=== PATIENT | female | born 1955 | race Caucasian/White ===

== ENCOUNTER 2017-05-24 21:15 | Emergency (ER) | payer BC, SELFPAY ==
[2017-05-24 21:17] VITALS: BP 159/102; PULSE 78; RESP 16; TEMP 36.9; O2SAT 96; BMI 20.9
--- NOTE | 2017-05-24 21:30 | EKG12_ITS ---
Test Reason : CHEST TIGHTNESS Blood Pressure : / mmHG Vent. Rate : 066 BPM Atrial Rate : 066 BPM P-R Int : 148 ms QRS Dur : 076 ms QT Int : 384 ms P-R-T Axes : 054 069 056 degrees QTc Int : 402 ms Normal sinus rhythm Nonspecific ST abnormality Abnormal ECG Confirmed by JAMES BUCHANAN ([id number]), fashion editor KALI KAHN ([id number]) on 05/28/2017 10:12:25 AM Referred By: Confirmed By:JAMES BUCHANAN
[2017-05-24 22:57] LABS: Bacteria 0 SEEN /hpf (None Seen); Mucous, Urine 0 SEEN /hpf (<or=2+); Red Blood Cells-Urine 0 SEEN /hpf (0-5); Squamous Epithelial Cells - UA 0 SEEN /hpf (5-10); White Blood Cells 0 SEEN /hpf (0-5)
--- NOTE | 2017-05-24 23:01 | ED.DCSUM_ITS ---
- ER Visit Summary Date of Service: 05/24/17 Chief Complaint: I think I had an anxiety reaction and bilateral abdominal pain radiating to the suprapubic region History of Present Illness: The patient is a 61 F who has been under significant stress since had surgery and has not done well. She does have history of anxiety and takes Xanax 1 mg 3 times daily. She did not take her evening dose. She denies fever, chills night sweats. Denies double vision , blurred vision loss of vision. She denies any cardiac or respiratory symptoms. She denies history of renal or ureteral calculi. She does complain of feeling bloated and slightly distended. She is status post hysterectomy for abnormal vaginal bleeding. She denies any skin lesions. She denies any trauma. She denies any neurologic symptoms. Please read written note for complete detail Physical Examination: Patient appears slightly anxious. Vital signs are remarkable blood pressure 159 102. Head is atraumatic normocephalic. Pupils are equal round reactive. Extraocular muscles are intact. TMs are pearly white with landmarks noted. Nares patent with no drainage. Posterior pharynx without erythema or exudate. Uvula is midline. There is no dysphonia or dysphasia. Trachea is midline. There is no stridor with auscultation of the neck. Patient has a scar inferior anterior neck secondary to thyroidectomy. Insert cardiopulmonary exam abdomen slightly distended tympanitic with increased bowel sounds. There is no guarding rebound tenderness. There is no CVA tenderness noted. There is no evidence of umbilical or inguinal hernia. Neuro exam is nonfocal. She does appear anxious. Friend who is with her states she is very anxious and concerned because her is not doing well after his knee surgery. Test Results: Urine is unremarkable Emergency Department Course and Treatment: Because she complains of flank pain will assess UA. Ativan 1 mg was initially ordered. Patient declined and requested Xanax. Treatment Plan: Take Xanax as prescribed and follow-up with PCP as needed Disposition: Discharged to home Impression: Acute anxiety reaction This note was generated with [employer] dictation software. It may contain incorrect words, spelling, and punctuation that were not noted in review of the chart prior to signing ED Disposition - Plan for ED Patient: Disposition: Home or Assisted Living Chief Complaint: General Illness Instructions: ED Stress React Referrals: Artis Mays Jr., MD [Primary Care Provider] - Keep Jose appointment
[2017-05-24 23:08] LABS: Color, Urine Yellow (Yellow); Glucose, Dipstick Normal (Normal); Ketone-Dipstick Negative (Negative); Leukocyte Esterase-Dipstick 25 /ul (Negative); Nitrite-Dipstick Negative (Negative); Occult Blood-Urine Negative /ul (Negative); Protein-Dipstick Negative (Negative); Specific Gravity, Urine 1.005 (1.002-1.030); Urine Bilirubin Dipstick Negative (Negative); Urine Clarity Clear (Clear); Urine Urobilinogen Normal (Normal)
[2017-05-24] MEDS: ALPRAZolam 0.5 MG Tablet 1 MG PO (23:34)
[2017-05-25 00:08] VITALS: BP 152/75; PULSE 67; RESP 15; O2SAT 98
== END 2017-05-25 00:13 | disposition home or self-care (01) ==
PROVIDERS: Emergency Provider Emergency Medicine; Family Provider Internal Medicine; PCP Internal Medicine
DX: F41.1 Generalized anxiety disorder (principal); R14.0 Abdominal distension (gaseous); E03.9 Hypothyroidism, unspecified; Z90.710 Acquired absence of both cervix and uterus; Z90.89 Acquired absence of other organs; Z79.899 Other long term (current) drug therapy
CPT/HCPCS: 81001; 93005; 99281; A4216

== ENCOUNTER 2018-02-22 13:32 | Emergency (ER) | payer BC, SELFPAY ==
[2018-02-22 13:32] VITALS: BP 163/81; PULSE 87; RESP 16; TEMP 36.6; O2SAT 97; BMI 21.6
--- NOTE | 2018-02-22 14:50 | ED.VISSUMM ---
- ER Visit Summary Date of Service: 02/22/18 Chief Complaint: Anxiety History of Present Illness: The patient is a 62 F who states that she ran out of her Xanax on Saturday morning around 0400 hours. She states that she has been under increased amount of stress due to her 's medical status and having to put down a stray cat. Because of this increased stress that she has taken more Xanax than what she is prescribed. She is on Xanax 0.5 mg 4 times daily. She has been taking Xanax for years. She states that her pharmacist told her they can fill the prescription tomorrow. She last filled a 30-day supply on 01/27/18 for [address] Mays for this condition. She states that she feels like she is having a panic attack. She feels nauseated. She had one episode of diarrhea today. She notes chills. No rhinorrhea. No goosebumps flush. She spoke with her counselor who gave her coping skills. Physical Examination: Afebrile vital signs are stable Gen: Well-nourished well-developed Head: Normocephalic atraumatic Eyes: Perrl EOMI ENT: TMs clear no rhinorrhea moist mucous membranes Neck: Supple no lymphadenopathy no JVD nontender CVS: Regular rate rhythm no murmurs normal S1-S2 Respiratory: No distress clear to auscultation bilaterally chest nontender Abdomen: Soft nontender nondistended normal bowel sounds no masses Back: Nontender Extremity: Nontender no edema Skin: Normal color no rash Neuro: alert orientated ?3 CN II-XII intact normal strength sensation reflexes gait cerebellar Psych: Anxious Emergency Department Course and Treatment: An oars report was performed. I informed the patient I will be happy to give her one Xanax while she is here unfortunately I cannot refill her Xanax. I will write for some Vistaril. Impression: 1. Anxiety This note was generated with [employer] dictation software. It may contain incorrect words, spelling, and punctuation that were not noted in review of the chart prior to signing ED Disposition - Plan for ED Patient: Disposition: Home or Assisted Living Chief Complaint: Anxiety Instructions: ED Panic Attack Prescriptions: hydrOXYzine pamoate capsule [Vistaril] 25 mg PO TID PRN PRN #10 cap PRN Reason: Anxiety Referrals: Artis Mays Jr., MD [Primary Care Provider] - As soon as possible
[2018-02-22] MEDS: ALPRAZolam 0.5 MG Tablet 1 MG PO (15:17)
[2018-02-22 15:20] VITALS: BP 153/91; PULSE 74; RESP 18; O2SAT 96
--- NOTE | 2018-02-22 15:49 | ED.RN ---
support provided, listened to patient. she appears more calm after the xanax. [place] information given on vistaril to .
== END 2018-02-22 15:49 | disposition home or self-care (01) ==
LOC: ED 15:02
PROVIDERS: Emergency Provider Emergency Medicine; Family Provider Internal Medicine; PCP Internal Medicine
DX: F41.9 Anxiety disorder, unspecified (principal); R19.7 Diarrhea, unspecified; Z72.0 Tobacco use
CPT/HCPCS: 99284

== ENCOUNTER 2018-05-19 14:40 | Emergency (ER) | payer BC, SELFPAY ==
[2018-05-19 14:40] VITALS: BP 161/101; PULSE 94; RESP 18; TEMP 36.3; O2SAT 95; BMI 22.6
--- NOTE | 2018-05-19 14:54 | ED.VISSUMM ---
- ER Visit Summary Date of Service: 05/19/18 Chief Complaint: Panic attack/anxiety History of Present Illness: The patient is a 62 F who presents with anxiety and a panic attack. She feels shaky and her heart is racing. This is been ongoing for the past 2 days. Patient takes Xanax 4 times a day. She states that she ran out on Saturday, May 17. Dr. Mays prescribes this for her. 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 Physical Examination: Vital signs reviewed. HEENT exam unremarkable. Heart is regular rate and rhythm without murmurs. Lungs are clear to auscultation. Abdomen is soft and nontender. Extremities reveal no edema. Skin exam normal. Neurologic exam normal. Patient does appear slightly anxious. Test Results: None performed Emergency Department Course and Treatment: I did an [facility] report and it shows the patient filled 120 pills on April 21. If she ran out on May 17 then it appears that she has taken more than 4 times a day a couple of occasions and that is why she ran out early. I will give her 1 dose here. I will not prescribe her anymore and she will need to follow-up with Dr. Mays for any future Xanax prescriptions Treatment Plan: [] Disposition: Discharge Impression: Anxiety This note was generated with [employer] dictation software. It may contain incorrect words, spelling, and punctuation that were not noted in review of the chart prior to signing ED Disposition - Plan for ED Patient: Chief Complaint: Anxiety Referrals: Artis Mays Jr., MD [Primary Care Provider] -
--- NOTE | 2018-05-19 14:56 | ED.DEP ---
ED Disposition - Plan for ED Patient: Disposition: Home or Assisted Living Chief Complaint: Anxiety Instructions: ED Panic Attack Referrals: Artis Mays Jr., MD [Primary Care Provider] -
[2018-05-19] MEDS: ALPRAZolam 0.5 MG Tablet PO (15:35)
--- NOTE | 2018-05-19 16:15 | ED.RN ---
PT SPEAKING WITH SOCIAL WORK AT THIS TIME.
[2018-05-19 16:26] VITALS: BP 148/81; PULSE 71; RESP 15; O2SAT 98
--- NOTE | 2018-05-19 16:26 | CM.ED ---
Social Work Note Reason for Consult: Anxiety Informant: Self-Referral Information obtained from: Medical record, pt and pt's spouse, Pranav. Introduced self and role at [facility]. Pt is laying in bed in no apparent distress. Pt presents with pleasant affect as evidenced by smiling and willingness to participate. Maintains eye contact and speech is appropriate. Pt is not visibly anxious at this time, but has received a dose of Xanax. Living Arrangements: Pt reports to live with spouse in a three story home. Denies access issues and claims to be independent with care. They also have 8 cats in the home that have been strays and they cannot find shelters or homes for. Employment: Pt is retired. Both pt and spouse report to be financially stable. Supports: Pt identifies spouse as primary support. Stressors: Spouse was hospitalized this pas year and has health comorbidities, multiple cats in the home, the holidays. Pt identifies these all as stressors in addition to her PCP allegedly telling her she would if she did not take her Xanax and to not see a psychiatrist because they would lock me up. Mental Health Hx: Pt reports a hx of anxiety and denies other mental health diagnoses. She was seeing a counselor in [place] by the last name of Dameron, but states that she could only get her in every 6 weeks and it was not helpful. Pt is receptive to other counseling resources as options of treatment. Educate pt and spouse to the purpose of a psychiatrist and explain that they specialize in mental health diagnoses and the medications that treat them. Pt and spouse are both receptive to linkage with a psychiatrist. Provide with a list of local counselors and psychiatrists. Substance Abuse Hx: Pt does report to smoke between 1/2-1ppd. Denies use of other diagnoses. Intervention(s): Education on purpose of psychiatrist and counselor. Resources provided. Emotional support provided. PLAN: Home with support of spouse. Gloria Meraz, [employer], [employer]
--- OUTSIDE RECORDS SUMMARY | 2018-07-22 03:38 | XMS RPT_ITS ---
:1955 Author Organization OHIP Support Name Relationship Address Phone PRANAV CHANDRA Unavailable [address] + [place] [address] R Unavailable Unavailable Unavailable BADERTCHER PRANAV Unavailable [address] + [place] [address] BADERTCHER, PRANAV Unavailable [address] + [place] [address] BADERTCHER, PRANAV Unavailable [address] + [place] [address] BADERTCHER, PRANAV Unavailable [address] + [place] [address] BADERTSCHER, PRANAV Unavailable [address] + [place] [address] R Unavailable Unavailable Unavailable BADERTCHER, PRANAV Unavailable [address] + [place] [address] BADERTCHER, PRANAV Unavailable [address] + [place] [address] BADERTCHER, PRANAV Unavailable [address] + [place] [address] BADERTCHER, PRANAV Unavailable [address] + [place] [address] BADERTCHER, PRANAV Unavailable [address] + [place] [address] BADERTCHER, PRANAV Unavailable [address] + [place] [address] BADERTSCHER, PRANAV Unavailable [address] + [place] [address] R Unavailable Unavailable Unavailable BADERTSCHER, PRANAV Unavailable [address] + [place] [address] R Unavailable Unavailable Unavailable Care Team Providers Name Role Phone ARTIS SALES MD, JR. Primary Care Unavailable VERONICA BRUNO Attending Unavailable ARTIS SALES MD, JR. Primary Care Unavailable ARTIS SALES MD, JR. Consulting Unavailable ISAIAS ARIZA MD Attending Unavailable ARTIS SALES MD, JR. Attending Unavailable ARTIS SALES MD, JR. Primary Care Unavailable ARTIS SALES MD, JR. Attending Unavailable ARTIS SALES MD, JR. Primary Care Unavailable ARTIS SALES MD, JR. Attending Unavailable ARTIS SALES MD, JR. Primary Care Unavailable Davon Wang, Artis Primary Care Unavailable Dung Sibley Attending Unavailable Davon Wang, Artis Primary Care Unavailable Fady Benítez Attending Unavailable Artis Sales Jr. Primary Care Unavailable Montana Bonilla Attending Unavailable Dottie Stokes NP-C Attending Unavailable Davon Wang, Artis Referring Unavailable PROBLEMS PROBLEMS No Problem Records FoundPROCEDURES PROCEDURES No Procedure Records FoundRESULTS RESULTS EMERGENCY DEPARTMENT Observed: 05/19/2018 Status: F Source: [place] SUMMARY 2:56 PM [facility] REPOSITORY [facility] Medical Records Department [address] [place] [address] Emergency Department Summary 05/19/18 1454 MR#: [id number] Acct: [id number] Name: DOLORES CHANDRA Rep #: [id number] : 1955 62 From: Dung Sibley MD PCP: Artis Sales Jr., MD Status: PRE ER - ER Visit Summary Date of Service: 05/19/18 Chief Complaint: Panic attack/anxiety History of Present Illness: The patient is a 62 F who presents with anxiety and a panic attack. She feels shaky and her heart is racing. This is been ongoing for the past 2 days. Patient takes Xanax 4 times a day. She states that she ran out on May 17. Dr. Sales prescribes this for her. She states that she has a prescription to medicinal plant pick[facility] but she cannot pick it up until tomorrow or Saturday. Physical Examination: Vital signs reviewed. HEENT exam unremarkable. Heart is regular rate and rhythm without murmurs. Lungs are clear to auscultation. Abdomen is soft and nontender. Extremities reveal no edema. Skin exam normal. Neurologic exam normal. Patient does appear slightly anxious. Test Results: None performed Emergency Department Course and Treatment: I did an OARRS report and it shows the patient filled 120 pills on April 21. If she ran out on May 17 then it appears that she has taken more than 4 times a day a couple of occasions and that is why she ran out early. I will give her 1 dose here. I will not prescribe her anymore and she will need to follow-up with Dr. Sales for any future Xanax prescriptions Treatment Plan: [] Disposition: Discharge Impression: Anxiety This note was generated with TVbeat dictation software. It may contain incorrect words, spelling, and punctuation that were not noted in review of the chart prior to signing ED Disposition - Plan for ED Patient: Chief Complaint: Anxiety Referrals: Artis Sales Jr., MD [Primary Care Provider] - What to do if you have Problems For any increased pain, shortness of breath, bleeding, nausea or vomiting, chest pain, or any unexpected problems, contact your Primary Care Provider. Call [facility] ([phone]) or report to the closest Emergency Room. Call 911 if necessary. 05/19/18 1456 <Electronically signed by Dung Sibley MD> Date Dung Sibley MD Cosigner Signature (If Indicated): Date CC: Artis Sales Jr., MD DISCHARGE INSTRUCTION Observed: 05/19/2018 Status: F Source: [place] 2:56 PM [facility] REPOSITORY [facility] Medical Records Department [address] [place] [address] Discharge Instruction 05/19/18 1456 MR#: [id number] Acct: [id number] Name: DOLORES CHANDRA Rep #: [id number] : 1955 62 From: Dung Sibley MD PCP: Artis Sales Jr., MD Status: PRE ER ED Disposition - Plan for ED Patient: Disposition: Home or Assisted Living Chief Complaint: Anxiety Instructions: ED Panic Attack Referrals: Artis Sales Jr., MD [Primary Care Provider] - What to do if you have Problems For any increased pain, shortness of breath, bleeding, nausea or vomiting, chest pain, or any unexpected problems, contact your Primary Care Provider. Call [facility] ([phone]) or report to the closest Emergency Room. Call 911 if necessary. 05/19/18 1456 <Electronically signed by Dung Sibley MD> Date Dung Sibley MD Cosigner Signature (If Indicated): Date CC: Artis Sales Jr., MD VL CAROTID BILATERAL Observed: 05/15/2018 Status: F Source: [facility] DUPLEX 2:10 PM [facility] REPOSITORY ORIGINAL Bilateral carotid artery ultrasound, grayscale study with duplex Doppler exam including color Doppler interrogation and waveform analysis HISTORY: Dizziness COMPARISON: None Note: Stenosis measurements are made with SRU consensus criteria where applicable. Mild intimal thickening is evident within the common carotid arteries bilaterally. There is minimal plaque is evident at the origins of the ICAs bilaterally, with no significant visual stenosis identifi ed. There is no significant velocity acceleration or turbulent flow present. Maximum ICA peak systolic velocity on the RIGHT is 89 cm/s and on the LEFT 91 cm/s. The size or within normal limits. The melva tebral arteries are patent bilaterally with antegrade flow. IMPRESSION: No hemodynamically significant stenosis is evident on this exam. Interpreted By: Sebastian Masterson MD Preliminary Report By: Sebastian Masterson MD Electronically Signed By: Sebastian Masterson MD Dictated Date: 05/16/2018 8:01:46 AM Prelim Date: 05/16/2018 8:01:46 AM Sign Date: 05/16/2018 8:04:06 AM XR SACROILIAC JOINTS Observed: 05/12/2018 Status: F Source: [facility] MINIMUM 3 VIEWS 3:13 PM [facility] REPOSITORY ORIGINAL XR SACROILIAC JOINTS MINIMUM 3 VIEWS CLINICAL STATEMENT: back pain, lumbosacral COMPARISON: None FINDINGS: SI joints are symmetric and normal. There is no ankylosis, degenerative change or other asymmetric finding. Sacrum appears intact. IMPRESSION: Negative SI joint radiographs. Interpreted By: Thomas Camarena MD Preliminary Report By: Thomas Camarena MD Electronically Signed By: Thomas Camarena MD Dictated Date: 05/12/2018 4:22:11 PM Prelim Date: 05/12/2018 4:22:11 PM Sign Date: 05/12/2018 4:22:44 PM XR SPINE LUMBAR Observed: 05/12/2018 Status: F Source: [facility] AP/LAT 3:12 PM [facility] REPOSITORY ORIGINAL XR SPINE LUMBAR AP/LAT CLINICAL STATEMENT: back pain, lumbosacral COMPARISON: None FINDINGS: There are 5 lumbar type vertebral bodies. There is moderate dextroscoliosis centered at L3 level. Lateral view is less than optimal for evaluating vertebral height but grossly there is no obvious loss o f height or other evidence off a fracture or compression deformity. There is multilevel spondylosis and asymmetric due to scoliosis and moderate lower lumbar spine facet arthropathy. Decreased L5-S1 disc space. Symmetric SI joints. IMPRESSION: Moderate dextroscoliosis and degenerative changes. Interpreted By: Thomas Camarena MD Preliminary Report By: Thomas Camarena MD Electronically Signed By: Thomas Camarena MD Dictated Date: 05/12/2018 4:20:44 PM Prelim Date: 05/12/2018 4:20:44 PM Sign Date: 05/12/2018 4:21:59 PM CMP Collected: 05/12/2018 Status: F Source: [facility] 3:09 PM [facility] REPOSITORY TYPE CODE TESTS RESULT OUT OF REFERENCE UNITS RANGE LAB GLU(LOINC) 80-115 mg/dL Glucose Level 90 LAB NA(LOINC) 136-145 mmol/L Sodium Level 140 LAB K(LOINC) 3.5-5.1 mmol/L Potassium Level 4.0 LAB CL(LOINC) 98-107 mmol/L Chloride 104 LAB CO2(LOINC) 23-31 mmol/L CO2 27 LAB EBAL(LOINC mEq/L ) Electrolyte Balance 9.0 LAB BUN(LOINC) 7-18 mg/dL Low BUN 6 LAB CRE(LOINC) 0.55-1.02 mg/dL Creatinine Lvl (s) 0.72 LAB BC(LOINC) 7-27 ratio BUN/Creatinine 8 Ratio LAB CA(LOINC) 8.4-10.2 mg/dL Calcium Lvl 9.2 LAB PROT(LOINC 6.4-8.2 G/dL ) Total Protein 6.6 LAB ALB(LOINC) 3.4-4.8 G/dL Albumin Level 3.9 LAB GLB(LOINC) G/dL Globulin 2.7 LAB AG(LOINC) 1.1-2.5 ratio A/G Ratio 1.4 LAB BILT(LOINC 0.2-1.0 mg/dL ) Bili Total 0.6 LAB AP(LOINC) 40-135 U/L Alk Phos 77 LAB AST(LOINC) 10-40 U/L AST/SGOT 20 LAB ALT(LOINC) 10-35 U/L ALT/SGPT 24 Performed By: #### CMP, LIPID, GFR, TSH #### [address] [address] LIPID Collected: 05/12/2018 Status: F Source: [facility] 3:09 PM [facility] REPOSITORY TYPE CODE TESTS RESULT OUT OF REFERENCE UNITS RANGE LAB CHOL(LOINC 0-200 mg/dL ) Cholesterol 185 Result Comment: Cholesterol Reference Interval: Less than 200 Desirable 200-239 Borderline high risk 240 and above High risk LAB TRIG(LOINC) 0-150 mg/dL Triglycerides 66 Result Comment: Triglyceride Reference Interval: Less than 150 Normal 150-199 Borderline high risk 200-499 High risk 500 or higher Very high risk LAB HD(LOINC) 40-60 mg/dL HDL Cholesterol 53 LAB LDL(LOINC) 0-130 mg/dL LDL Cholesterol 119 Performed By: #### CMP, LIPID, GFR, TSH #### [address] [address] .GFR Collected: 05/12/2018 Status: F Source: [facility] 3:09 PM [facility] REPOSITORY TYPE CODE TESTS RESULT OUT OF REFERENCE UNITS RANGE LAB GFRAA(LOINC ml/min/1.73 ) sqm GFR 99 Liberian Result Comment: GFR Population mean for , Non- Americans Ages 20-29 = 116 mL/min/1.73 sq.m. Ages 30-39 = 107 mL/min/1.73 sq.m. Ages 40-49 = 99 mL/min/1.73 sq.m. Ages 50-59 = 93 mL/min/1.73 sq.m. Ages 60-69 = 85 mL/min/1.73 sq.m. Ages 70+ = 75 mL/min/1.73 sq.m. Chronic Kidney Disease: Less than 60 mL/min/1.73 square meters End Stage Renal Disease: Less than 15 mL/min/1.73 square meters LAB GFRNO(LOINC) ml/min/1.73sqm GFR Non- 82 Result Comment: GFR Population mean for , Non- Americans Ages 20-29 = 116 mL/min/1.73 sq.m. Ages 30-39 = 107 mL/min/1.73 sq.m. Ages 40-49 = 99 mL/min/1.73 sq.m. Ages 50-59 = 93 mL/min/1.73 sq.m. Ages 60-69 = 85 mL/min/1.73 sq.m. Ages 70+ = 75 mL/min/1.73 sq.m. Chronic Kidney Disease: Less than 60 mL/min/1.73 square meters End Stage Renal Disease: Less than 15 mL/min/1.73 square meters Performed By: #### CMP, LIPID, GFR, TSH #### [place] [address] TSH Collected: 05/12/2018 Status: F Source: [facility] 3:09 PM [facility] REPOSITORY TYPE CODE TESTS RESULT OUT OF RANGE REFERENCE UNITS LAB TSH(LOINC) 0.36-3.74 mcIU/mL Low TSH 0.02 Performed By: #### CMP, LIPID, GFR, TSH #### [place] [address] EMERGENCY DEPARTMENT Observed: 02/22/2018 Status: F Source: [place] SUMMARY 4:15 PM [facility] REPOSITORY [facility] Medical Records Department [address] [place] [address] Emergency Department Summary 02/22/18 1450 MR#: [id number] Acct: [id number] Name: DOLORES CHANDRA Rep #: [id number] : 1955 62 From: Montana Bonilla DO PCP: Artis Sales Jr., MD Status: DEP ER - ER Visit Summary Date of Service: 02/22/18 Chief Complaint: Anxiety History of Present Illness: The patient is a 62 F who states that she ran out of her Xanax on Saturday morning around 0400 hours. She states that she has been under increased amount of stress due to her 's medical status and having to put down a stray cat. Because of this increased stress that she has taken more Xanax than what she is prescribed. She is on Xanax 0.5 mg 4 times daily. She has been taking Xanax for years. She states that her pharmacist told her they can fill the prescription tomorrow. She last filled a 30-day supply on 01/27/18 for [address] Sales for this condition. She states that she feels like she is having a panic attack. She feels nauseated. She had one episode of diarrhea today. She notes chills. No rhinorrhea. No goosebumps flush. She spoke with her counselor who gave her coping skills. Physical Examination: Afebrile vital signs are stable Gen: Well-nourished well-developed Head: Normocephalic atraumatic Eyes: Perrl EOMI ENT: TMs clear no rhinorrhea moist mucous membranes Neck: Supple no lymphadenopathy no JVD nontender CVS: Regular rate rhythm no murmurs normal S1-S2 Respiratory: No distress clear to auscultation bilaterally chest nontender Abdomen: Soft nontender nondistended normal bowel sounds no masses Back: Nontender Extremity: Nontender no edema Skin: Normal color no rash Neuro: alert orientated 3 CN II-XII intact normal strength sensation reflexes gait cerebellar Psych: Anxious Emergency Department Course and Treatment: An oars report was performed. I informed the patient I will be happy to give her one Xanax while she is here unfortunately I cannot refill her Xanax. I will write for some Vistaril. Impression: 1. Anxiety This note was generated with TVbeat dictation software. It may contain incorrect words, spelling, and punctuation that were not noted in review of the chart prior to signing ED Disposition - Plan for ED Patient: Disposition: Home or Assisted Living Chief Complaint: Anxiety Instructions: ED Panic Attack Prescriptions: hydrOXYzine pamoate capsule [Vistaril] 25 mg PO TID PRN PRN #10 cap PRN Reason: Anxiety Referrals: Artis Sales Jr., MD [Primary Care Provider] - As soon as possible What to do if you have Problems For any increased pain, shortness of breath, bleeding, nausea or vomiting, chest pain, or any unexpected problems, contact your Primary Care Provider. Call [facility] ([phone]) or report to the closest Emergency Room. Call 911 if necessary. 02/22/18 8955 <Electronically signed by Montana Bonilla DO> Date Montana Bonilla DO Cosigner Signature (If Indicated): Date CC: Artis Sales Jr., MD MA MAMMOGRAM SCREENING Observed: 02/18/2018 Status: F Source: [facility] BILATERAL W/CATHY 4:00 PM [facility] REPOSITORY ORIGINAL FROM: [facility] [address] [place] [address] PROCEDURE FOR: DOLORES AHMADIRANDY [address] [place] [address] Home: PID#: [id number] Exam#: [id number] : 1955 Age: 62 TO: ARTIS SALES JR [address] [id number] #[id number] BILATERAL DIGITAL SCREENING MAMMOGRAM 3D/2D WITH CAD WITH MEDIOLATERAL OBLIQUE CRANIOCAUDAL: 02/18/2018 Comparison is made to exams dated: 02/25/2017 mammogram and 02/21/2016 mammogram - [facility]. There are scattered fibroglandular elements in both breasts. Current study was also evaluated with a Computer Aided Detection (CAD) system. No significant masses, calcifications, or other findings are seen in either breast. There has been no significant interval change. IMPRESSION: NEGATIVE There is no mammographic evidence of malignancy. A 1 year screening mammogram is recommended.(02/19/2019) MOHIT felix/batsheva:02/18/2018 16:07:57 Materials Associate(s): RT Ashlee SEPULVEDA)(M), [facility] letter sent: Normal BI-RADS 1&2 Mammogram BI-RADS: 1 Negative UA Collected: 09/10/2017 Status: F Source: [facility] 12:35 PM [facility] REPOSITORY TYPE CODE TESTS RESULT OUT OF RANGE REFERENCE UNITS LAB SPCUA(TAVO NC) UA Specimen Type Void LAB CLRUA(TAVO NC) UA Color Straw LAB APPUA(TAVO NC) UA Appear Clear LAB SGUA(LOIN C) UA Spec Unknown Grav <=1.005 LAB GLUA(LOIN Negative mg/dL C) UA Glucose Negative LAB BILUA(TAVO Neg-Trace NC) UA Bili Negative LAB KETUA(TAVO Neg-Trace mg/dL NC) UA Ketones Negative LAB BLDUA(TAVO Neg-Trace NC) UA Blood Negative LAB PHUA(LOIN 5.0 - 8.0 C) UA pH 5.5 LAB PROUA(TAVO Negative mg/dL NC) UA Protein Negative LAB UROUA(TAVO E.U./dL NC) UA Urobilinogen 0.2 LAB NITUA(TAVO Negative NC) UA Nitrite Negative LAB LEUUA(TAVO Negative NC) UA Leuk Est Negative Performed By: #### UA #### [place] [address] 12 LEAD ELECTROCARDIOGRAM Observed: 05/28/2017 Status: F Source: [place] 10:12 AM [facility] REPOSITORY [facility] Cardiovascular Services [address] [place] [address] 12 Lead EKG 05/24/17 2130 MR#: [id number] Acct: [id number] Name: DOLORES CHANDRA S[place]ha Rep #: [id number] : 1955 61 From: Montana Buchanan MD Attending Dr: Status: DEP ER Ordering Dr: Fady Benítez MD Date: 05/24/17 Location: ED Sex: F C Admitted: Test Reason : CHEST TIGHTNESS Blood Pressure : / mmHG Vent. Rate : 066 BPM Atrial Rate : 066 BPM P-R Int : 148 ms QRS Dur : 076 ms QT Int : 384 ms P-R-T Axes : 054 069 056 degrees QTc Int : 402 ms Normal sinus rhythm Nonspecific ST abnormality Abnormal ECG Confirmed by MONTANA BUCHANAN ([id number]), editor farm journal KALI KAHN (56) on 05/28/2017 10:12:25 AM Referred By: Confirmed By:MONTANA BUCHANAN 05/28/17 1012 Date Montana Buchanan MD CC: Artis Sales Jr., MD Signed ALLERGIES ALLERGIES DATE TYPE / CODE NAME / CODE REACTION SEVERITY SOURCE 05/19/2018 Drug zolpidem/F00 Other Unknown [facility] Allergy/4160 [id number]([place] [address]([facility]ED ) Repository CT) 05/19/2018 Drug tramadol/F00 Other Unknown [facility] Allergy/4160 [id number]([place] [address]([facility]) Repository CT) ENCOUNTERS ENCOUNTERS ADMIT/DISCHARGE ACCOUNT NUMBER ADMITTING ENCOUNTER LOCATION SOURCE CLASS 05/19/2018/05/19/19 [id number] Emergency [place] ding:ED Repository 05/15/2018/05/15/19 [id number] Ambulatory BBuilding:[facility] Repository 05/12/2018/05/12/19 [id number] Ambulatory BBuilding:[address] Repository 02/22/2018/02/23/20 [id number] Emergency [place] [facility] ding:ED Repository 02/18/2018/02/19/20 [id number] Ambulatory [address] ding:[facility] Repository 11/23/2017/11/24/19 [id number] Emergency ABuilding:[address] Repository 09/10/2017/09/11/19 [id number] Emergency ABuilding:[address] Repository 06/03/2017 [id number] [facility] 05/24/2017/05/25/19 [id number] Emergency [place] [address] [facility] ding:ED Repository PAYERS PAYERS ENCOUNTER GUARANTOR PAYER SUBSCRIBER SOURCE 05/19/2018 PRANAV [place] [id number] Insurance:ANTHEMPolicy BADERTSCHERDOB: [facility]ly [facility] [place]: [id number] [id number] Repository [address]Lve: 330) Date:[id number] [phone] (HP) [address] [place] [address] [place] [address]HA: 05/19/2018 Secondary NOT GIVENUNK [place] Insurance:SELF PAY [facility] Number: Effective Repository Date:2018-05-19 05/15/2018 DOLORES Hoover Primary DOLORES Hoover [facility]: Insurance:ANTHEM BLUE BADERTSCHERDOB: Foundation CROSS INSCOPolicy [id number] Repository COUNTRY Number: COUNTRY [facility], [id number] Regional Medical Center Date:2018-05-15 10085Bgc: [phone]~TENPOPBOD [phone] [phone] @[facility]: Name:BPO BOX (HP)Tel: [phone]) [phone], [place] 000-0000 (WP) (HP) [phone]: 05/12/2018 DOLORES Hoover [facility] DOLORES Hoover [facility]: Insurance:ANTHEM BLUE BADERTSCHERDOB: [facility] [id number] CROSS INSCOPolicy [id number] Repository COUNTRY Number: [address] [facility], [id number] [address]Ztr: Date:2018-05-12 17483Tyy: [phone] [phone] (HP) Name:BPO BOX (HP)Tel: [phone], [place] 000-0000 (WP) [phone]: 02/22/2018 PRANAV Primary DOLORES Hoover [place] [id number] Insurance:ANTHEMPolicy BADERTSCHERDOB: Community [place]: [id number] [id number] Repository [address]Mbl: ([phone]) Date:0720-98-38PM [phone] (HP) 290[address]ZMGFWVY, [place] [address]FG: 02/22/2018 Secondary NOT GIVENUNK [place] Insurance:SELF PAY [facility] Number: Effective Repository Date:2018-02-22 02/18/2018 DOLORES Sneha Primary [facility]ES [facility] Insurance:ANTHEM BLUE BADERTSCHERDOB: Foundation [id number] CROSS INSC[employer]olicy [id number] Repository COUNTRY Number: COUNTRY [facility] [id number] Regional Medical Center [address]Haf: Date:2018-02-17 964[address]Jjm: [phone] (HP) Name:BPO BOX (HP)Tel: [phone]) [phone], [place] 000-0000 (WP) 350[address]HB: 11/23/2017 DOLORES [facility]neha [facility]: Insurance:ANTHEM BLUE BADERTSCHERDOB: [facility] [id number] CROSS COMMERCIALPolicy [id number] Repository COUNTRY Number: [address] [facility], [id number] [place], [place] [address]Exc: Date:2017-11-23 769[address]Ceh: [phone] [phone] (HP) Name:BPO BOX (HP)Tel: [phone]) [phone], [place] 000-0000 (WP) [address]KW: 09/10/2017 DOLOERS K Primary DOLORES K [facility]: Insurance:ANTHNATHANIEL FILEMON YUB: Foundation [id number] CROSS COMMERCIALPoly [id number] Repository COUNTRY Number: 5 [facility] [id number] [place], [place] [address]Ywq: Date:2017-09-10 91413Xqe: [phone] () Name:MARIFER ARGUETA ()Tel: [phone], [place] 000-0000 () [address]KW: 06/03/2017 Pranav Primary Insurance:SELF NOT GIVENUNK [place] [id number] [facility] Country Number: Effective [facility], Date:2017-05-06 [place]ository [place] [address]Bfc: () 05/24/2017 Pranav Primary DOLORES K [place] [id number] Insurance:Chloé YUB: Community Country Number: [id number] [facility], [id number] Repository [place] [address]Jam: Date:5993-05-24JS BOX FEDERICA BOURGEOIS () [address]FF: 05/24/2017 Secondary NOT GIVENUNK [place] Insurance:SELF PAY [facility] Number: Effective Repository Date:2017-05-24
== END 2018-05-19 16:28 | disposition home or self-care (01) ==
LOC: ED 15:32
PROVIDERS: Emergency Provider Emergency Medicine; Family Provider Internal Medicine; PCP Internal Medicine
DX: F41.9 Anxiety disorder, unspecified (principal); Z72.0 Tobacco use
CPT/HCPCS: 99282

== ENCOUNTER 2018-06-19 10:47 | Emergency (ER) | payer BC, SELFPAY ==
[2018-06-19 10:48] VITALS: BP 159/99; PULSE 98; RESP 20; TEMP 36.7; O2SAT 97; BMI 22.4
--- NOTE | 2018-06-19 11:08 | ED.VIS.GEN ---
History of Present Illness Chief Complaint: Anxiety Detail of Chief Complaint: History of chronic Xanax use, last dose yesterday a.m. Onset: Today Context: Sudden Onset Timing: Continuous Quality: Withdrawal symptoms Location: Generalized Current Severity: Moderate Maximum Severity: Moderate Worsened by: No Xanax dose in 24+ hours Relieved by: Nothing Associated Symptoms: Nausea, abdominal discomfort, diarrhea, feeling of uneasiness, tremors Narrative: Patient is a elderly woman who presents with symptoms consistent with withdrawal. She has been on Xanax for significant amount of time. She also made comments regarding nursing staff at doctor's office, other physician office and referral to physical therapy for back pain secondary to scoliosis. Patient denies fever, chills or night sweats. She denies cold sweats. She reported goosebumps. She denies visual, ocular or auditory symptoms. She denied palpitations or chest discomfort. She denies shortness of breath. She does report nausea without vomiting or diarrhea. Apparently she had tremors last evening while attempting to sleep. She states her dose of levothyroxine was increased based on recent blood work. She does report cold intolerance. Prior similar symptoms: No Recent Illness/Hospitalization: Yes - For back pain Past Medical History - Allergies and Home Meds Allergies/Adverse Reactions: Allergies tramadol [From Ultram] Adverse Reaction (Verified 06/19/18 10:48) Other zolpidem [From Ambien] Adverse Reaction (Verified 06/19/18 10:48) Other Primary Care Physician: Artis Mays Jr., MD [Primary Care Provider] - Prior records reviewed: Yes Past Medical History: - - Anxiety and hypothyroidism Lives: Spouse/ Significant Other, - - Patient reports she is retired. Smoking Status: Current every day smoker Alcohol: Rare Drugs: None Review of Systems General: Denies: Chills, Fever, Malaise, Sweats, Weight loss Eyes: Denies: Visual changes - bilaterally, Blurred Vision - bilaterally, Diplopia ENT: Denies: Bilateral ear pain, Rhinorrhea, Sore throat Cardiovascular: Reports: Palpitations. Denies: Chest pain Respiratory: Denies: Dyspnea, Cough, Dyspnea on exertion Gastrointestinal: Reports: Nausea, Diarrhea. Denies: Abdominal pain, Vomiting, Melena, Hematochezia Genitourinary: Denies: Dysuria, Hematuria, Frequency Musculoskeletal: Reports: Back pain. Denies: Myalgias, Arthralgias, Extremity Pain Skin: Denies: Rash, Wounds Neurological: Denies: Headache, Weakness, Parasthesia, Numbness Psych: Reports: Depression, Anxiety. Denies: Suicidal thoughts Endocrine: Reports: Cold intolerance. Denies: Heat intolerance Allergy: Denies: Uticaria, Swelling of the mouth, Swelling of the tongue Physical Exam Vital Signs/Narrative: Vital Signs Temp Pulse Resp BP Pulse Ox 06/19/18 10:48 98.1 F 98 20 H 159/99 H 97 Inital Vital Signs reviewed: Yes General: Well nourished, Well developed, No Acute Distress Head: Normocephalic, Atraumatic Eyes: Perrl, EOMI, Scleral icterus, - - There is no nystagmus. Negative for: Pale conjunctiva ENT: Moist mucous membranes, No rhinorrhea. Negative for: Nasal congestion Neck: Supple, Nontender, No JVD Cardiovascular: Regular rate, Regular rhythm, No murmurs, Normal S1, Normal S2 Respiratory: No distress, CTA bilaterally, Chest nontender. Negative for: Decreased Air Movement Abdomen: Soft, Nontender, Nondistended, Hyperactive bowel sounds. Negative for: Normal bowel sounds, Hepatomegaly, Splenomegaly Rectal: Deferred Back: Negative for: Nontender, CVA tenderness Extremities: Nontender, No edema. Negative for: Tenderness, Edema, Calf Tenderness Skin: Normal color, No rash. Negative for: Cyanosis, Jaundice Neurological: Alert, Oriented x3, Cranial nerves II-XII grossly intact, Normal Strength - Deep tendon reflexes are brisk, 4+ and there is 4-8 beats of clonus right and left ankle, Normal Sensation. Negative for: Normal DTR, Confused, Disoriented Diagnostic/Tx/Re-eval - Rhythm Strip Rhythm Strip: Narrow complex Rate: 98 Ectopy: None - Medical Decision Making Half-life of Xanax is approximately 9 hours. Patient symptoms are consistent with withdrawal from benzodiazepine. Exam is concerning for with withdrawal. IV was established. She received Ativan IV push and will treat with p.o. Librium which has a much longer half-life especially since patient has prescription that will be available tomorrow Saturday, November 16 Patient was reassessed at 1245. She is no longer hyperreflexic. She no longer has clonus. She states she feels better. She was seen by case management and has an outpatient appointment at 2 PM tomorrow, June 20. ED Disposition - Plan for ED Patient: Disposition: Home or Assisted Living Diagnosis: Benzodiazepine withdrawal without complication Instructions: ED Withdrawal Benzodiazepine Referrals: Artis Mays Jr., MD [Primary Care Provider] - Keep Jose appointment
[2018-06-19] MEDS: LORazepam 2 MG/ML Syringe 0.5 MG IV (11:42)
[2018-06-19] MEDS: chlordiazePOXIDE 25 MG Capsule PO (11:47)
--- NOTE | 2018-06-19 12:25 | CM.ED ---
Social Work Assessment Referral Date: 06/19/18 Date of Assessment: 06/19/18 Informant: SELF REFERRAL Reason for Consult: ANXIETY Information obtained from: PT AND PT'S , [facility] Living Arrangements: PT LIVES HOME WITH IN A 4 STORY HOME. Employment/Financial: RETIRED, PT AND VOICE FINANCIAL STRESS FROM RECENT MEDICAL/DENTAL NEEDS. Supports: PT VOICES GOOD SUPPORT FROM . Social/Family Stressors: PT AND VOICE FINANCIAL STRESSORS. PT STATES SUFFERS FROM ANXIETY AND PANIC ATTACKS AND ONCE SHE FEELS IT IS GETTING UNDER CONTROL, IT IS NOT. VOICES THE SAME. Mental Health History: PT WITH HX OF ANXIETY AND HAS BEEN PRESCRIBED XANAX FOR MANY YEARS. PT STATES HAS FOLLOWED OFF AND ON WITH THE COUNSELING CENTER. PT REPORTS DOES NOT FEEL WHAT THE COUNSELOR AT THE CENTER TELLS HER IS HELPFUL. PT STATES STRUGGLES WITH ANXIETY AND PANIC ATTACKS ON A DAILY BASIS. Substance Abuse History: PT ADMITS TO HX OF ALCOHOL ABUSE AND STATES HAS ABSTAINED FROM ALCOHOL FOR 2+ YEARS. Interventions: SOCIAL SERVICE ASSESSMENT REFERRAL TO THE [facility]. INTAKE APPOINTMENT SCHEDULED FOR TOMORROW, 06/20/18 AT 2PM. Assessment: SOCIAL SERVICE ASSESSMENT COMPLETED. PT IS A 62 Y/O FEMALE WHO PRESENTS TO THE ED WITH ANXIETY. PT REPORTS LIVES HOME WITH IN A 4 STORY HOME. PT IS INDEPENDENT WITH ALL ADLS AND TRANSPORTATION. PT REPORTS HX OF ANXIETY AND HAS BEEN PRESCRIBED XANAX FOR MANY YEARS. PT STATES HAS FOLLOWED OFF AND ON WITH THE COUNSELING CENTER, BUT DOES NOT AGREE WITH SOME OF THEIR COPING RECOMMENDATIONS. PT STATES PCP IS RETIRING AND WILL NEED TO FIND NEW PCP. PT STATES IS OUT OF HER MEDICATION FOR XANAX. DISCUSSED OTHER OPTIONS FOR PCP AND MENTAL HEALTH AGENCIES. PT AND IN AGREEMENT WITH REFERRAL FOR INTAKE APPOINTMENT TOMORROW AT THE [facility]. THIS WORKER CALLED THE [facility] AND SPOKE WITH SABA. APPOINTMENT SCHEDULED FOR TOMORROW, 06/20/18 AT 2PM. PT AND GIVEN INFORMATION ON PROGRAM AND APPOINTMENT TIME AND DATE. PT ADMITS TO HX OF ALCOHOL USE AND STATES HAS ABSTAINED FROM ALCOHOL FOR OVER 2 YEARS. THIS WORKER PROVIDED MUCH EMOTIONAL SUPPORT AND EDUCATION THROUGHOUT ASSESSMENT. ANTICIPATE PT TO D/C HOME. DR. KAUR UPDATED ON INTAKE APPOINTMENT TOMORROW. PLAN: HOME WITH WITH INTAKE APPOINTMENT AT THE [facility] TOMORROW AT 2PM.
[2018-06-19 13:03] VITALS: BP 124/73; PULSE 71; RESP 18; O2SAT 96
== END 2018-06-19 13:04 | disposition home or self-care (01) ==
PROVIDERS: Emergency Provider Emergency Medicine; Family Provider Internal Medicine; PCP Internal Medicine
DX: F13.239 Sedative, hypnotic or anxiolytic dependence with withdrawal, unspecified (principal); F17.200 Nicotine dependence, unspecified, uncomplicated; F41.9 Anxiety disorder, unspecified; E03.9 Hypothyroidism, unspecified
CPT/HCPCS: 99285; J7030; A4216

== ENCOUNTER 2018-11-05 12:27 | Emergency (ER) | payer MEDICARE, OTHER, SELFPAY ==
[2018-11-05 12:29] VITALS: BP 124/89; PULSE 89; RESP 17; TEMP 37; O2SAT 96; BMI 22.2
--- NOTE | 2018-11-05 12:57 | ED.VISSUMM ---
- ER Visit Summary Date of Service: 11/05/18 Chief Complaint: Anxiety History of Present Illness: The patient is a 62 F who tells me that she ran out of her Xanax this morning. She takes 0.5 mg 4 times a day. She last filled the prescription on October 13 and that prescription was for 30 days. She is approximately 1 week out from her next prescription. She tells me that her new doctor has recommended that she see a psychiatrist she has an appointment tomorrow. She states she called her doctor's office today and they said they cannot write her for more Xanax. She states she does not know what she is going to do and she is very scared. No suicidal homicidal ideation Physical Examination: Afebrile vital signs are stable Gen: Well-nourished well-developed Head: Normocephalic atraumatic Eyes: Perrl EOMI ENT: TMs clear no rhinorrhea moist mucous membranes Neck: Supple no lymphadenopathy no JVD nontender CVS: Regular rate rhythm no murmurs normal S1-S2 Respiratory: No distress clear to auscultation bilaterally chest nontender Abdomen: Soft nontender nondistended normal bowel sounds no masses Back: Nontender Extremity: Nontender no edema Skin: Normal color no rash Neuro: alert orientated ?3 CN II-XII intact normal strength sensation Psych: Patient appears quite anxious. Emergency Department Course and Treatment: I did a oars report. As mentioned above she has run out of her Xanax approximately 1 week early. I do not believe I can write for Xanax to get it filled. I can write for a few Ativan to get her until her [facility] appointment tomorrow. This way she can avoid withdrawal symptoms. Impression: 1. Generalized anxiety disorder This note was generated with [employer] dictation software. It may contain incorrect words, spelling, and punctuation that were not noted in review of the chart prior to signing ED Disposition - Plan for ED Patient: Disposition: Home or Assisted Living Instructions: Anxiety Reaction Prescriptions: Lorazepam [Ativan] 0.5 mg PO TID #10 tab Prescription Printed Referrals: Drew Osborn NP-C [Primary Care Provider] -
--- NOTE | 2018-11-05 13:30 | CM.ED ---
SOCIAL WORK INFORMANT: DR. FRASER REASON FOR REFERRAL: ANXIETY MET WITH PATIENT IN ROOM. PATIENT KNOWN TO THIS WORKER FROM PREVIOUS VISIT. PATIENT PRESENTS TO ED AFTER RUNNING OUT OF RX-XANAX. PATIENT STATES RAN OUT A WEEK EARLY. PATIENT REPORTS HAS APPOINTMENT WITH PSYCHIATRIST- DR. BOWSER TOMORROW AT 1:30P. DISCUSSED MEDICATION AND TAKING MORE THAN PRESCRIBED. PATIENT STATES WISHES TO GET OFF MEDICATION ALL TOGETHER, BUT WORRIED ABOUT WITHDRAWAL. EDUCATION AND SUPPORT PROVIDED. PER DR. FRASER, WILL BE GIVING PATIENT SCRIPT FOR ATIVAN. PLAN: HOME WITH BEFORE WITH PSYCHIATRIST APPOINTMENT TOMORROW, 11/06/18.
[2018-11-05 13:45] VITALS: BP 140/86; PULSE 71; RESP 16; O2SAT 97
[2018-11-05 13:49] VITALS: BP 140/86; PULSE 73; RESP 15; O2SAT 98
== END 2018-11-05 14:00 | disposition home or self-care (01) ==
PROVIDERS: Emergency Provider Emergency Medicine; Family Provider Nurse Practitioner Primary Care; PCP Nurse Practitioner Primary Care
DX: F41.1 Generalized anxiety disorder (principal)
CPT/HCPCS: 99282

== ENCOUNTER 2018-12-02 17:19 | Emergency (ER) | payer MEDICARE, OTHER, SELFPAY ==
[2018-12-02 17:20] VITALS: BP 143/78; PULSE 120; RESP 16; TEMP 36.2; O2SAT 94; BMI 22.2
--- NOTE | 2018-12-02 19:23 | EKG12_ITS ---
Test Reason : Blood Pressure : / mmHG Vent. Rate : 098 BPM Atrial Rate : 098 BPM P-R Int : 182 ms QRS Dur : 072 ms QT Int : 332 ms P-R-T Axes : 086 072 046 degrees QTc Int : 423 ms Normal sinus rhythm Possible Left atrial enlargement Nonspecific T wave abnormality Abnormal ECG Confirmed by JAMES BUCHANAN ([id number]), fashion editor KATEY VALENTINE ([id number]) on 12/03/2018 2:32:35 PM Referred By: LANEY Confirmed By:JAMES BUCHANAN
[2018-12-02] MEDS: LORazepam 2 MG/ML Syringe 1 MG IV (19:36)
[2018-12-02 19:38] LABS: Absolute Neutrophil Count 6.7 X10^3/uL (2.0-7.7); Basophil# 0.01 X10^3/uL; Basophil% 0.1 % (0-1); Hematocrit 38.5 % (37-47); Hemoglobin 13.8 g/dL (12.0-15.0); Lymphocyte % 13.9 % (19-41); Mean Corp Hgb Conc 35.8 g/dL (32-36); Mean Corpuscular Hgb 31.1 pg (27.0-32.0); Mean Corpuscular Volume 86.7 fL (81-99); Mean Platelet Vol. 10.9 fl (6.2-12.0); Monocyte# 0.62 X10^3/uL; Monocyte% 7.2 % (0-10); NRBC Flagged by Analyzer 0 % (0-5); Neutrophil # 6.74 X10^3/uL (2.7-7.7); Neutrophil % 78.3 % (47-70); Platelet Count 256 K/mm3 (150-450); RBC Distribution Width CV 12.5 % (11.6-14.6); RBC Distribution Width SD 39.8 fl (35.1-43.9); Red Blood Count 4.44 M/mm3 (4.2-5.4); White Blood Count 8.6 K/mm3 (4.4-11.0)
[2018-12-02 20:01] LABS: Anion Gap 9 (5-15); BUN 6 mg/dL (7-18); BUN/Creat Ratio 8.6 RATIO (10-20); Chloride 107 mmol/L (98-107); EST Glomerular Filtration Rate 89 mL/min (>60); Est Glom Filt Rate - Afr Amer 108 mL/min (>60); Estimated Creatinine Clearance 63.11 ml/min; Glucose 119 mg/dL (74-106); Potassium 3.7 mmol/L (3.5-5.1); Sodium Level 141 mmol/L (136-145); Thyroid Stim Hormone (TSH) 0.03 uIU/mL (0.358-3.74)
--- NOTE | 2018-12-02 20:13 | ED.DCSUM_ITS ---
- ER Visit Summary Date of Service: 12/02/18 Chief Complaint: [Anxiety] History of Present Illness: The patient is a 63 F [presents to the emergency department with complaint of anxiety attack started today. Patient gives me history that she accidentally took some trazodone yesterday which made her nauseated and she felt like she was having allergic reaction to it so she went to the emergency department at [facility] where she was given Solu-Medrol as well as Pepcid and Benadryl. Patient was also prescribed prednisone for home. Patient also was prescribed Benadryl for home. Patient states she does not like to take medications. Today she feels shaky and feels like there is something stuck in her throat. Patient feels jittery and anxious which she has felt similar symptoms multiple times in the past. Patient does take alprozolam 3 times a day and she ran out yesterday. Significant chest pain or shortness of breath.] She also states that she has had some medication changes with her thyroid medication she used to take generic levothyroxine and that she was switched to Synthroid and then recently back to levothyroxine. Past medical history includes anxiety and hypothyroidism. Patient has had a thyroidectomy. Physical Examination: [HEENT-PERRLA, EOMI. Cranial nerves II through XII grossly intact. TMs clear. Mucous membranes moist. No adenopathy. Cardiovascular-regular rate and rhythm without murmur or ectopy Lungs-clear to auscultation, chest wall stable without crepitus or subcu emphysema Abdomen-normoactive bowel sounds, soft, nontender, no rebound or rigidity, no peritoneal signs. Extremities-intact ?4, normal range of motion, normal pulses, atraumatic] Test Results: [EKG obtained arrival shows sinus rhythm with a ventricular rate of 98 bpm with some nonspecific ST changes. CBC with differential was normal. Chemistries unremarkable. TSH was 0.03.] Emergency Department Course and Treatment: [She received Ativan 1 mg IV and she had good relief of symptoms.] Treatment Plan: [Follow-up with primary care physician within next 3 to 5 days. Patient was told that her TSH is low which she may need to have her levothyroxine dosage adjusted and that she may be getting too much. Patient will be given a perception for Ativan for 4 days until she can refill her other medications.] Disposition: [Discharged home in stable condition] Impression: [Anxiety reaction] This note was generated with [employer] dictation software. It may contain incorrect words, spelling, and punctuation that were not noted in review of the chart prior to signing ED Disposition - Plan for ED Patient: Referrals: Drew Osborn, CABLE TENDER-C [Primary Care Provider] -
[2018-12-02 20:15] VITALS: BP 136/73; PULSE 90; RESP 17; O2SAT 99
--- NOTE | 2018-12-02 20:17 | ED.DEP ---
ED Disposition - Plan for ED Patient: Instructions: Anxiety Reaction Prescriptions: Lorazepam [Ativan] 1 mg PO TID #12 tab Prescription Printed Referrals: Drew Osborn, ELIGIO-C [Primary Care Provider] - 3-5 Days
== END 2018-12-02 20:24 | disposition home or self-care (01) ==
LOC: ED 19:53
PROVIDERS: Emergency Provider Emergency Medicine; Family Provider Nurse Practitioner Primary Care; PCP Nurse Practitioner Primary Care
DX: F41.9 Anxiety disorder, unspecified (principal); E03.9 Hypothyroidism, unspecified
CPT/HCPCS: 80048; 84443; 85025; 93005; 96374; 99284; A4216

== ENCOUNTER 2019-03-24 11:19 | Emergency (ER) | payer MEDICARE, OTHER, SELFPAY ==
[2019-03-24 11:20] VITALS: BP 147/75; PULSE 92; RESP 16; TEMP 36.1; BMI 21.8
[2019-03-24] MEDS: ALPRAZolam 0.25 MG Tablet 1 MG PO (12:28)
--- NOTE | 2019-03-24 13:36 | ED.DCSUM_ITS ---
- ER Visit Summary Date of Service: 03/24/19 Chief Complaint: Anxiety History of Present Illness: The patient is a 63 F who presents with anxiety attack that is been getting worse over the past 3 days. Patient states she ran out of her Xanax early. Patient states her primary care physician would not refill her Xanax until it is scheduled to be refilled. Patient states she feels shaky all over. Patient admits to some nausea. Patient also admits to some insomnia. Patient admits to a headache with some tingling in her left hand but states this is chronic. Physical Examination: Vital signs are stable. Patient is afebrile. Patient is in no acute distress. Oromucosa is pink and moist. Neck is supple. Trachea is midline. There is no JVD noted. Heart was regular rate and rhythm. Lungs are clear and equal bilateral. Abdomen is soft and nontender. Cranial nerves II th rough XII are intact. There are no focal motor or sensory deficits noted. Patient does have a anxious mood and affect. Emergency Department Course and Treatment: Patient was given a dose of Xanax here. Patient OARRS report was reviewed. Patient was given a 30-day prescription for Xanax on 02/26/2019. I advised the patient that I would be unable to write her a prescription for Xanax until 03/28/2019. Since the patient is allergic to hydroxyzine, patient was instructed to try Benadryl as needed to help with her anxiety. Patient was instructed to follow-up with her primary care physician in 3-5 days. Patient and her understood and were agreeable with the plan. All questions were answered. Disposition: Discharge home Impression: 1. Acute anxiety This note was generated with [employer] dictation software. It may contain incorrect words, spelling, and punctuation that were not noted in review of the chart prior to signing ED Disposition - Plan for ED Patient: Disposition: Home or Assisted Living Diagnosis: Anxiety Instructions: Anxiety Reaction Referrals: Drew Osborn NP-C [Primary Care Provider] - 3-5 Days
== END 2019-03-24 13:51 | disposition home or self-care (01) ==
PROVIDERS: Emergency Provider Emergency Medicine; Family Provider Nurse Practitioner Primary Care; PCP Nurse Practitioner Primary Care
DX: F41.9 Anxiety disorder, unspecified (principal); G47.00 Insomnia, unspecified
CPT/HCPCS: 99283

== ENCOUNTER 2019-06-25 16:02 | Inpatient (IN) | payer MEDICARE, OTHER, SELFPAY ==
[2019-06-25 16:04] VITALS: BP 136/88; PULSE 67; RESP 18; TEMP 36.5; O2SAT 97; BMI 21.9
--- NOTE | 2019-06-25 16:49 | EKG12_ITS ---
Test Reason : ANXIETY Blood Pressure : / mmHG Vent. Rate : 061 BPM Atrial Rate : 061 BPM P-R Int : 136 ms QRS Dur : 076 ms QT Int : 412 ms P-R-T Axes : 030 047 021 degrees QTc Int : 414 ms Normal sinus rhythm Normal ECG Confirmed by JAMEL JACOBSEN, MILIND ([id number]), production editor KATEY VALENTINE ([id number]) on 06/29/2019 9:53:04 AM Referred By: CONG Confirmed By:MILIND MCCULLOUGH MD
--- NOTE | 2019-06-25 17:01 | ED.VISSUMM ---
- ER Visit Summary Date of Service: 06/25/19 Chief Complaint: Anxiety History of Present Illness: The patient is a 63 F presenting with anxiety. Patient states she has had anxiety for years. She states she has been on Xanax for the past 15 years. She was seen by her primary care physician today. She states she was sent into the ED for admission to wean off Xanax. She was started on Zoloft 2 weeks ago. She complains of anxiety. She denies depression or suicidal ideation. Denies chest pain or shortness of breath. Denies any complaints at this time. Physical Examination: Vitals are stable. Patient is afebrile. Alert no acute distress. HEENT exam is unremarkable. Neck is supple. Lungs are clear and equal bilaterally. Heart is regular rate and rhythm. Abdomen is soft nontender nondistended. Extremities are unremarkable. Skin is warm and dry. No focal neurologic deficit. Anxious Remainder of exam is unremarkable. Emergency Department Course and Treatment: EKG is sinus rate of 61 with no acute ischemic changes. CBC unremarkable. Basic metabolic panel, tox and alcohol are pending. Discussed with the hospitalist for admission. Disposition: Admission Impression: Anxiety, Benzodiazepine dependence This note was generated with [employer] dictation software. It may contain incorrect words, spelling, and punctuation that were not noted in review of the chart prior to signing ED Disposition - Plan for ED Patient: Referrals: Aj Strickland DO [Primary Care Provider] -
[2019-06-25 17:50] VITALS: O2SAT 98
[2019-06-25 18:08] LABS: Absolute Lymphocyte Count 3.04 X10^3/uL (0.83-4.51); Absolute Neutrophil Count 5.3 X10^3/uL (2.0-7.7); Basophil# 0.05 X10^3/uL; Basophil% 0.5 % (0-1); Eosinophil# 0.08 X10^3/uL; Eosinophils% 0.9 % (0-5); Hematocrit 39.4 % (37-47); Hemoglobin 13.4 g/dL (12.0-15.0); Lymphocyte # 3.04 X10^3/ul (4.0); Lymphocyte % 33.2 % (19-41); Mean Corpuscular Hgb 30.2 pg (27.0-32.0); Mean Corpuscular Volume 88.9 fL (81-99); Mean Platelet Vol. 10.6 fl (6.2-12.0); Monocyte# 0.63 X10^3/uL; Monocyte% 6.9 % (0-10); NRBC Flagged by Analyzer 0 % (0-5); Neutrophil # 5.33 X10^3/uL (2.7-7.7); Neutrophil % 58.1 % (47-70); Platelet Count 282 K/mm3 (150-450); RBC Distribution Width CV 12.8 % (11.6-14.6); RBC Distribution Width SD 41.7 fl (35.1-43.9); Red Blood Count 4.43 M/mm3 (4.2-5.4); White Blood Count 9.2 K/mm3 (4.4-11.0)
[2019-06-25 18:36] VITALS: BP 142/85; PULSE 69; RESP 19; O2SAT 97
[2019-06-25 18:37] LABS: Alcohol, Blood (Medical)-Serum < 3.0 mg/dL
--- NOTE | 2019-06-25 18:48 | HP.PCM_ITS ---
Problem List (1) Benzodiazepine withdrawal Status: Acute Qualifiers: Complication of substance-induced condition: uncomplicated Qualified Code(s): F13.230 - Sedative, hypnotic or anxiolytic dependence with withdrawal, uncomplicated (2) Anxiety and depression Status: Chronic (3) Tobacco use Status: Chronic (4) History of Adan thyroiditis Status: Chronic (5) Hypothyroidism Status: Chronic Qualifiers: Hypothyroidism type: unspecified Qualified Code(s): E03.9 - Hypothyroidism, unspecified (6) GERD (gastroesophageal reflux disease) Status: Chronic Qualifiers: Esophagitis presence: esophagitis presence not specified Qualified Code(s): K21.9 - Gastro-esophageal reflux disease without esophagitis History of Present Illness Date of Admission: 06/25/19 Chief Complaint: Acute BZD withdrawal The patient is a 63 y/o F w/ PMHx: Hypothyroidism (Hx Adan status post thyroid resection that was performed in the ), Tobacco use, Anxiety and Depression, GERD who presents to the [facility] ED on 06/25/19 with history of ongoing 15 year usage of 4 mg xanax daily referred secondary to acute BZD withdrawal, onset starting this afternoon following last 1 mg xanax dose at 4:30 am with onset of nausea, tremors, agitation, tactile disturbances. Patient interested in safely transitioning of her high dose regimen xanax. She recently started low dose zoloft but notes nausea and headaches associated. In the ED work-up included T 97.7, heart 67, BP 136/80, respiratory rate 18, 97% on room air, BC with WC 9.2, hemoglobin 13.4, platelet 282 with no shift, ending BMP upon requested evaluation of patient, urine drug screen with positive benzodiazepine, ethyl alcohol less than 3. The ED no medications were administered. Past Medical History Past Medical History (Chronic Problems): Chronic Problems Anxiety and depression (Chronic) Tobacco use (Chronic) History of Adan thyroiditis (Chronic) Hypothyroidism (Chronic) GERD (gastroesophageal reflux disease) (Chronic) Allergies buspirone [From BuSpar] Adverse Reaction (Verified 06/25/19 16:03) Other NIGHTMARES, DIARRHEA, VOMITING hydroxyzine [From Vistaril] Adverse Reaction (Verified 06/25/19 16:03) Vomiting sertraline [From Zoloft] Adverse Reaction (Verified 06/25/19 16:04) Other tramadol [From Ultram] Adverse Reaction (Verified 06/25/19 16:03) Other zolpidem [From Ambien] Adverse Reaction (Verified 06/25/19 16:03) Other Home Medications: Ambulatory Orders Medication Instructions Recorded Alprazolam [Xanax] 1 mg PO 4X/DAY 05/24/17 Levothyroxine [Synthroid] 44 mcg PO PRINGLE 05/24/17 Pantoprazole Sodium 40 mg PO DAILY 12/02/18 Levothyroxine [Synthroid] 88 mcg PO MOTUWETHFRSA 03/24/19 Sertraline HCl 50 mg PO QHS 06/25/19 Surgical History: - - Thyroid resection, hysterectomy. 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 Tobacco Use: Cigarettes Alcohol: None Drugs: None - *Family History Maternal History Items: - - Patient notes a maternal family history of brain cancer. Paternal History Items: - - Patient notes paternal family history of cancer but unclear type. Review of Systems Constitutional: Reports: Malaise, Weakness, Fatigue. Denies: Anorexia, Chills, Fever, Weight Change HEENT: Denies: Head Aches, Sinus Congestion, Sinus Drainage Cardiovascular: Denies: Chest Pain, Palpitations Respiratory: Denies: Cough, Shortness of breath at rest, Sputum production Gastrointestinal: Reports: Nausea. Denies: Abdominal Pain, Vomiting Genitourinary: Denies: Dysuria Musculoskeletal: Reports: Joint Pain. Denies: Joint Tenderness Skin: Denies: Rash, Wounds Neurological: Reports: Tremor. Denies: Focal weakness, Numbness, Tingling Psychiatric: Reports: Anxiety, Depression. Denies: Homicidal Ideations, Suicidal Ideations Hematologic/ Lymphatic: Denies: Easy Bruising, Easy Bleeding VTE Information - Inpt Only VTE Present on Admission: No VTE Mechan Device Prophylaxis: None VTE Pharm Prophylaxis ordered?: No Reason prophylaxis not ordered:: Treatment Not Indicated Patient Problems: Active and Suspected Problems Benzodiazepine withdrawal (Acute) Subjective: Patient seated upright in ED bed, mildly anxious, moving frequently in the bed. Objective: Physical Examination: General: awake, alert, oriented x 3 and cooperative, seated upright in the ED bed mildly anxious and agitated. Skin: normal color, turgor, no icterus, cyanosis. HEENT: AT/NC, EOMI, PERRLA, dry MM, no carotid bruits or JVD noted. Lungs: CTA bilaterally, moderate effort, moderate decrease BL bases, no rales, ronchi or wheezing. Heart: Mildly tachycardic with regular rhythm; no gallop, rub audible. Abdomen: soft, mild discomfort with palpation but generalized and notes nauseous, ND, normal BS, no HSM. Extremities: no cyanosis, clubbing, or edema. Neurological: patient awake, alert, oriented x 3; cognitive function appears baseline intact; pupils equally reactive to light and accomodation; cranial nerves II-XII grossly normal, moving all 4 extremities, no focal deficits, strength mildly to moderately global decrease secondary to acute presentation. Psychiatric: affect appears mildly agitated, anxious, no acute evidence of depressive feelings. - Physical Exam Vitals/I&O's: Vital Signs Temp Pulse Resp BP Pulse Ox 97.7 F L 69 19 H 142/85 H 97 06/25/19 16:04 06/25/19 18:36 06/25/19 18:36 06/25/19 18:36 06/25/19 18:36 Oxygen Delivery Method Room Air Weight: 108 lb 11.006 oz Body Mass Index (BMI) 21.9 Laboratory Results 06/25/19 17:49: WBC 9.2, RBC 4.43, Hgb 13.4, Hct 39.4, MCV 88.9, MCH 30.2, MCHC 34.0, RDW Std Deviation 41.7, RDW Coeff of Max 12.8, Plt Count 282, MPV 10.6, Immature Gran % (Auto) 0.400, Neut % (Auto) 58.1, Lymph % (Auto) 33.2, [place] % (Auto) 6.9, Eos % (Auto) 0.9, Baso % (Auto) 0.5, Absolute Neuts (auto) 5.3, Absolute Lymphs (auto) 3.04, Nucleated RBC % 0 06/25/19 17:49: Sodium Pending, Potassium Pending, Chloride Pending, Carbon Dioxide Pending, Anion Gap Pending, BUN Pending, Creatinine Pending, Est GFR (MDRD) Af Amer Pending, Est GFR (MDRD) Non-Af Pending, BUN/Creatinine Ratio Pending, Glucose Pending, Calcium Pending 06/25/19 17:49: Ethyl Alcohol < 3.0 06/25/19 18:00: Urine Opiates Screen Pending, Urine Methadone Screen Pending, Ur Barbiturates Screen Pending, Ur Phencyclidine Scrn Pending, Ur Amphetamines Screen Pending, U Methamphetamin-MDMA Pending, U Benzodiazepines Scrn Pending, Urine Cocaine Screen Pending, U Cannabinoids Screen Pending, Ur Drug Screen Comment Assessment/Plan All Active Problems Benzodiazepine withdrawal (Acute) The patient is a 63 y/o F w/ PMHx: Hypothyroidism, Tobacco use, Anxiety and Depression, GERD who presents to the [facility] ED on 06/25/19 with history of ongoing 15 year usage of 4 mg xanax daily referred secondary to acute onset BZD withdrawal. 1. Acute BZD Withdrawal: Will admit to [facility], routine labs obtained in the ED with pending BMP otherwise not marked appearing, urine drug screen with positive benzodiazepine, unremarkable F alcohol level, per PCP Dr. Strickland request will admit patient with planned initiation of withdrawal protocol with taper course of ativan with plan transition to outpatient and continued slow withdrawal per him as well, maintain on scheduled gabapentin 300 mg 3 times daily for seizure prophylaxis/prevention, as needed Catapres, Bentyl, Vistaril, IV fluids, IV antiemetics, Tylenol as needed for pain. Will consult case management to assist in transition to level of rehabilitation care. 2. Anxiety and depression: We will continue patient home low-dose Zoloft. She has noted that she recently started this regimen and has had some mild GI side effects as well as headaches, noted that unfortunately she may need to very slowly increase this upwards versus changing to an alternate regimen which can be done patient. 3. Hypothyroidism: Story of previous Adan and notes that in the her thyroid was removed, continue home synthroid regimen. 4. Tobacco Abuse: Encouraged cessation, inpatient consultation per RT, NR if desired. 5. GERD: Continue patient Protonix. 6. DVT prophylaxis: Low risk. Code Visit Inpatient E&M: 65150 Init Hosp L3
[2019-06-25 18:59] LABS: Amphetamine Urine VISTA NEGATIVE (<1000 ng/mL); Barbiturate Urine VISTA NEGATIVE (< 200 ng/mL); Benzodiazepine Urine VISTA POSITIVE (< 200 ng/mL); Cocaine Urine VISTA NEGATIVE (< 300 ng/mL); Ecstacy Urine VISTA NEGATIVE (< 500 ng/mL); Methadone Urine VISTA NEGATIVE (< 300 ng/mL); PCP Urine VISTA NEGATIVE (< 25 ng/mL); THC Urine VISTA NEGATIVE (< 50 ng/mL); Vista UDS pH Range 6
--- NOTE | 2019-06-25 19:01 | CM.ED ---
Social Work Consult: Anxiety Informant: Self-Referral due reason for visit Patient stating to have came to the ED per primary care physician recommendation due get off Xanax. Patient stating to have taken Xanax for the past 15 years and is reporting trigger to detox off Xanax as patient using more then I should. Patient stating that the past few months have been stressful at patient home due to patient husbands health conditions and having to put down two of patient cats. Patient stating to have utilized [facility] for counseling in the past and to have not liked this service. Patient stating to have last used [facility] in 2019. Patient stating to be nervous about getting off of Xanax as it works for my panic attacks. Patient aware that social work is available for further follow up and support as needed. Plan is for patient to be admitted to acute unit. Elis PIERCE, RUBEN
[2019-06-25 19:27] LABS: Anion Gap 6 (5-15); BUN 2 mg/dL (7-18); BUN/Creat Ratio 2.8 RATIO (10-20); Calcium,Total 8.7 mg/dL (8.5-10.1); Chloride 106 mmol/L (98-107); EST Glomerular Filtration Rate 89 mL/min (>60); Est Glom Filt Rate - Afr Amer 107 mL/min (>60); Estimated Creatinine Clearance 62.36 ml/min; Glucose 87 mg/dL (74-106); Potassium 3.6 mmol/L (3.5-5.1); Sodium Level 137 mmol/L (136-145)
[2019-06-25 20:21] VITALS: BP 114/51; PULSE 68; RESP 16; TEMP 36.4; O2SAT 98
[2019-06-25 20:38] VITALS: BMI 21.7
[2019-06-25 20:41] VITALS: BMI 21.7
[2019-06-25] MEDS: LORazepam 1 MG Tablet 0.5 MG PO (22:05)
[2019-06-25] MEDS: Gabapentin 300 MG Capsule PO (22:06)
[2019-06-25] MEDS: Lactated Ringers 1,000 ML 125 ML IV (22:06)
[2019-06-25] MEDS: Sertraline 50 MG Tablet PO (22:06)
[2019-06-26] VITALS (7 sets, daily range): BP systolic 104–124; BP diastolic 64–74; PULSE 63–70; RESP 16–18; TEMP 36.2–36.9; O2SAT 94–98
[2019-06-26] MEDS: LORazepam 1 MG Tablet 0.5 MG PO ×6 (01:30→20:27)
[2019-06-26] MEDS: Levothyroxine 88 MCG Tablet PO (05:21)
--- NOTE | 2019-06-26 07:22 | PCM.PN.HOSP ---
Patient Problems: Active and Suspected Problems Benzodiazepine withdrawal (Acute) Reason for Visit: Acute benzo withdrawal Subjective: Patient is a 63-year-old lady with history of chronic Xanax use admitted with acute benzo withdrawal Objective: GENERAL: Patient is tearful HEENT: Atraumatic; EYES; Anicteric, Normal Conjunctiva NECK; supple, normal thyroid, RESPIRATORY: Diminished to auscultation CARDIOVASCULAR: Regular S1 S2, GI: soft, normoactive bowel sounds, : No Renal angle tenderness; EXTREMITIES: No edema, no clubbing, MUSCULOSKELETAL: no muscle waisting NEURO: Awake; no lateralizing signs. SKIN: No Rash PSYCH; tearful Vitals/I&O's: Vital Signs Temp Pulse Resp BP Pulse Ox 97.5 F L 66 18 118/71 95 06/26/19 06:23 06/26/19 06:23 06/26/19 06:23 06/26/19 06:23 06/26/19 06:23 Oxygen Delivery Method Room Air Weight: 48.7 kg Body Mass Index (BMI) 21.7 Intake and Output for Last 24 Hours 06/24/19 06/25/19 06/26/19 23:59 23:59 23:59 Intake Total 1300 / 1300 Balance 1300 / 1300 Laboratory Results 06/25/19 17:49: WBC 9.2, RBC 4.43, Hgb 13.4, Hct 39.4, MCV 88.9, MCH 30.2, MCHC 34.0, RDW Std Deviation 41.7, RDW Coeff of Max 12.8, Plt Count 282, MPV 10.6, Immature Gran % (Auto) 0.400, Neut % (Auto) 58.1, Lymph % (Auto) 33.2, [place] % (Auto) 6.9, Eos % (Auto) 0.9, Baso % (Auto) 0.5, Absolute Neuts (auto) 5.3, Absolute Lymphs (auto) 3.04, Nucleated RBC % 0 06/25/19 17:49: Sodium 137, Potassium 3.6, Chloride 106, Carbon Dioxide 25.0, Anion Gap 6, BUN 2 L, Creatinine 0.70, Estim Creat Clear Calc 62.36, Est GFR (MDRD) Af Amer 107, Est GFR (MDRD) Non-Af 89, BUN/Creatinine Ratio 2.8 L, Glucose 87, Calcium 8.7 02/27/20 17:49: Ethyl Alcohol < 3.0 06/25/19 18:00: Urine Opiates Screen NEGATIVE, Urine Methadone Screen NEGATIVE, Ur Barbiturates Screen NEGATIVE, Ur Phencyclidine Scrn NEGATIVE, Ur Amphetamines Screen NEGATIVE, U Methamphetamin-MDMA NEGATIVE, U Benzodiazepines Scrn POSITIVE H, Urine Cocaine Screen NEGATIVE, U Cannabinoids Screen NEGATIVE, Ur Drug Screen Comment Current Medications Acetaminophen (Tylenol) 650 mg PO Q6H PRN PRN PRN Reason: Pain Score 1-10/Temp > 100.7 F Al Hydroxide/Mg Hydroxide (Mylanta Ii) 30 ml PO Q6H PRN PRN PRN Reason: dyspesia Albuterol Sulfate (Ventolin Aerosols) 2.5 mg INHALATION Q2H PRN PRN PRN Reason: Shortness of Breath/Wheezing Bisacodyl (Dulcolax) 10 mg RECTAL DAILY PRN PRN PRN Reason: Constipation Dicyclomine HCl (Bentyl) 20 mg PO Q6H PRN PRN PRN Reason: abdominal discomfort Gabapentin (Neurontin) 300 mg PO TIDCM [facility] Last Admin: 06/25/19 22:06 Dose: 300 mg Documented by: Glucagon () 1 mg IM .X1 PRN PRN Reason: Hypoglycemia Dextrose (Dextrose 10%-Water) 250 mls @ 999 mls/hr IV .Q16M PRN; Protocol PRN Reason: HYPOGLYCEMIA Ibuprofen (Motrin) 600 mg PO Q8H PRN PRN PRN Reason: Pain Score 1-5/10 Levothyroxine Sodium (Synthroid) 88 mcg PO MoTuWeThFrSa@0600 [facility] Last Admin: 06/26/19 05:21 Dose: 88 mcg Documented by: Levothyroxine Sodium (Synthroid) 44 mcg PO Gregorio@0600 [facility] Loperamide HCl (Imodium) 2 - 4 mg PO UD PRN PRN Reason: LOOSE STOOLS Lorazepam (Ativan) 1 mg IV Q4H PRN PRN PRN Reason: Severe Anxiety Lorazepam (Ativan) 2 mg IV X1 PRN PRN Reason: Seizure Lorazepam (Ativan) 2 mg PO Q4H [facility]; Taper Stop: 06/30/19 20:29 Last Admin: 06/26/19 04:28 Dose: 2 mg Documented by: Methocarbamol (Methocarbamol) 750 mg PO Q6H PRN PRN PRN Reason: Muscle Aches Nicotine (Nicoderm Cq (Pbkc)) 14 mg TRANSDERM. DAILY [facility] Last Admin: 06/25/19 22:15 Dose: 14 mg Documented by: Nutritional Formula (Lactose Free) (Ensure Enlive) 120 ml PO 4X/DAY [facility] Ondansetron HCl (Zofran Odt) 4 mg PO Q6H PRN PRN PRN Reason: NAUSEA Pantoprazole Sodium (Protonix) 40 mg PO DAILY [facility] Senna (Senokot) 1 tablet PO QHS PRN PRN PRN Reason: Constipation Sertraline HCl (Zoloft) 50 mg PO QHS [facility] Last Admin: 06/25/19 22:06 Dose: 50 mg Documented by: Sodium Chloride () 10 - 40 ml IV UD PRN PRN Reason: SALINE FLUSH Trazodone HCl (Desyrel) 50 mg PO QHS [facility] Last Admin: 06/25/19 22:04 Dose: Not Given Documented by: STROKE Vital Signs/Narrative: Vital Signs Temp Pulse Resp BP Pulse Ox 06/26/19 06:23 97.5 F L 66 18 118/71 95 Medical Necessity - Tobacco Use Smoking Status: Current every day smoker Tobacco Use: Cigarettes Assessment/Plan All Active Problems Benzodiazepine withdrawal (Acute) Patient is a 63-year-old lady with history of chronic Xanax use admitted with acute benzo withdrawal 1. Acute benzo withdrawal -Patient admitted to regular nursing floor for symptomatic management in addition to initiation of lorazepam taper with plans for patient's primary care Dr. Strickland to continue to taper as outpatient 2. Hypothyroidism ~patient is on levothyroxine home dose continued 3. GERD ?On PPI did continue 4. Depression with anxiety - on Zoloft did continue 6. Tobacco dependence -counseled on cessation, offered nicotine patch for tobacco cravings . DVT prophylaxis ?Low risk did encourage early ambulation Active Medications Acetaminophen (Tylenol) 650 mg PO Q6H PRN PRN PRN Reason: Pain Score 1-10/Temp > 100.7 F Al Hydroxide/Mg Hydroxide (Mylanta Ii) 30 ml PO Q6H PRN PRN PRN Reason: dyspesia Albuterol Sulfate (Ventolin Aerosols) 2.5 mg INHALATION Q2H PRN PRN PRN Reason: Shortness of Breath/Wheezing Bisacodyl (Dulcolax) 10 mg RECTAL DAILY PRN PRN PRN Reason: Constipation Dicyclomine HCl (Bentyl) 20 mg PO Q6H PRN PRN PRN Reason: abdominal discomfort Gabapentin (Neurontin) 300 mg PO TIDCM [facility] Last Admin: 06/26/19 08:42 Dose: 300 mg Documented by: Glucagon () 1 mg IM .X1 PRN PRN Reason: Hypoglycemia Dextrose (Dextrose 10%-Water) 250 mls @ 999 mls/hr IV .Q16M PRN; Protocol PRN Reason: HYPOGLYCEMIA Ibuprofen (Motrin) 600 mg PO Q8H PRN PRN PRN Reason: Pain Score 1-5/10 Levothyroxine Sodium (Synthroid) 88 mcg PO MoTuWeThFrSa@0600 [facility] Last Admin: 06/26/19 05:21 Dose: 88 mcg Documented by: Levothyroxine Sodium (Synthroid) 44 mcg PO Gregorio@0600 [facility] Loperamide HCl (Imodium) 2 - 4 mg PO UD PRN PRN Reason: LOOSE STOOLS Lorazepam (Ativan) 1 mg IV Q4H PRN PRN PRN Reason: Severe Anxiety Lorazepam (Ativan) 2 mg IV X1 PRN PRN Reason: Seizure Lorazepam (Ativan) 2 mg PO Q4H [facility]; Taper Stop: 06/30/19 20:29 Last Admin: 06/26/19 08:42 Dose: 2 mg Documented by: Methocarbamol (Methocarbamol) 750 mg PO Q6H PRN PRN PRN Reason: Muscle Aches Nicotine (Nicoderm Cq (Pbkc)) 14 mg TRANSDERM. DAILY [facility] Last Admin: 06/25/19 22:15 Dose: 14 mg Documented by: Nutritional Formula (Lactose Free) (Ensure Enlive) 120 ml PO 4X/DAY [facility] Ondansetron HCl (Zofran Odt) 4 mg PO Q6H PRN PRN PRN Reason: NAUSEA Pantoprazole Sodium (Protonix) 40 mg PO DAILY [facility] Senna (Senokot) 1 tablet PO QHS PRN PRN PRN Reason: Constipation Sertraline HCl (Zoloft) 50 mg PO QHS [facility] Last Admin: 06/25/19 22:06 Dose: 50 mg Documented by: Sodium Chloride () 10 - 40 ml IV UD PRN PRN Reason: SALINE FLUSH Trazodone HCl (Desyrel) 50 mg PO QHS [facility] Last Admin: 06/25/19 22:04 Dose: Not Given Documented by: Code Visit Inpatient E&M: 84158 Subs Hosp L2
[2019-06-26] MEDS: Gabapentin 300 MG Capsule PO ×3 (08:42→16:46)
[2019-06-26] MEDS: Pantoprazole Sodium 40 MG Tablet PO (10:13)
--- NOTE | 2019-06-26 14:49 | CASEMGMT ---
Social Work SW met with pt in room and introduced role of SW. Pt stating she has had a long history of anxiety and panic attacks and has used Xanax for many years. Pt PCP retired and pt recently started seeing Dr Strickland. Pt states at appointment with Dr Strickland yesterday, sent pt to ED to withdrawal from Xanax. SW inquired if pt has had counseling in past for anxiety. Pt indicates she did go to the counseling center a few times but then a different doctor referred her to [facility] for Benzo withdrawal and pt started here in December and stopped going to Counseling Center. Pt did not feel [facility] was a good fit and stopped going there. SW talked with pt about different options to assist with successful withdrawal. Pt initially open to treatment options. With pt permission phone call to [facility] and the cannot assist pt at this time but would be available to assist once pt has completed Xanax withdrawal. SW made pt aware of this and SW gave her resouces for [facility] and discussed the importance of getting help to get through withdrawal. Pt expressing understanding but refuses to allow SW to make a referral at either facility. Pt states she will look over the information and will make a call herself to set up aftercare. SW will remain available should further needs arise. NATE Solis
--- NOTE | 2019-06-26 16:02 | CHAPLAIN ---
patient was on phone when entered the room; was unable to return to room at a later time
[2019-06-26] MEDS: 0.9% Saline Lock 10 ML Syringe IV (20:13)
[2019-06-26] MEDS: Sertraline 50 MG Tablet PO (21:38)
[2019-06-27] MEDS: LORazepam 1 MG Tablet 0.5 MG PO ×6 (00:34→20:34)
[2019-06-27 03:23] VITALS: BP 114/67; PULSE 62; RESP 14; TEMP 37; O2SAT 94
[2019-06-27] MEDS: Levothyroxine 88 MCG Tablet PO (04:38)
[2019-06-27 07:22] VITALS: O2SAT 95
[2019-06-27 08:30] VITALS: BP 130/83; PULSE 72; RESP 18; TEMP 37.1; O2SAT 95
[2019-06-27 08:35] VITALS: BP 130/83; PULSE 76; RESP 18; TEMP 37.1; O2SAT 95
[2019-06-27] MEDS: Pantoprazole Sodium 40 MG Tablet PO (08:40)
[2019-06-27] MEDS: Gabapentin 300 MG Capsule PO ×3 (08:40→16:30)
--- NOTE | 2019-06-27 09:25 | PCM.PN.HOSP ---
Patient Problems: Active and Suspected Problems Benzodiazepine withdrawal (Acute) Reason for Visit: Acute benzo withdrawal Subjective: Patient seen, complains of being tearful and having nightmares. Objective: GENERAL: Patient is tearful HEENT: Atraumatic; EYES; Anicteric, Normal Conjunctiva NECK; supple, normal thyroid, RESPIRATORY: Diminished to auscultation CARDIOVASCULAR: Regular S1 S2, GI: soft, normoactive bowel sounds, : No Renal angle tenderness; EXTREMITIES: No edema, no clubbing, MUSCULOSKELETAL: no muscle waisting NEURO: Awake; no lateralizing signs. SKIN: No Rash PSYCH; tearful Vitals/I&O's: Vital Signs Temp Pulse Resp BP Pulse Ox 98.6 F 62 14 114/67 95 06/27/19 03:23 06/27/19 03:23 06/27/19 03:23 06/27/19 03:23 06/27/19 07:22 Oxygen Delivery Method Room Air Weight: 48.7 kg Body Mass Index (BMI) 21.7 Intake and Output for Last 24 Hours 06/25/19 06/26/19 06/27/19 23:59 23:59 23:59 Intake Total 3150 / 3150 Balance 3150 / 3150 Current Medications Acetaminophen (Tylenol) 650 mg PO Q6H PRN PRN PRN Reason: Pain Score 1-10/Temp > 100.7 F Al Hydroxide/Mg Hydroxide (Mylanta Ii) 30 ml PO Q6H PRN PRN PRN Reason: dyspesia Albuterol Sulfate (Ventolin Aerosols) 2.5 mg INHALATION Q2H PRN PRN PRN Reason: Shortness of Breath/Wheezing Bisacodyl (Dulcolax) 10 mg RECTAL DAILY PRN PRN PRN Reason: Constipation Dicyclomine HCl (Bentyl) 20 mg PO Q6H PRN PRN PRN Reason: abdominal discomfort Gabapentin (Neurontin) 300 mg PO TIDCM [facility] Last Admin: 06/27/19 08:40 Dose: 300 mg Documented by: Glucagon () 1 mg IM .X1 PRN PRN Reason: Hypoglycemia Dextrose (Dextrose 10%-Water) 250 mls @ 999 mls/hr IV .Q16M PRN; Protocol PRN Reason: HYPOGLYCEMIA Ibuprofen (Motrin) 600 mg PO Q8H PRN PRN PRN Reason: Pain Score 1-5/10 Levothyroxine Sodium (Synthroid) 88 mcg PO MoTuWeThFrSa@0600 [facility] Last Admin: 06/27/19 04:38 Dose: 88 mcg Documented by: Levothyroxine Sodium (Synthroid) 44 mcg PO Gregorio@0600 [facility] Loperamide HCl (Imodium) 2 - 4 mg PO UD PRN PRN Reason: LOOSE STOOLS Lorazepam (Ativan) 1 mg IV Q4H PRN PRN PRN Reason: Severe Anxiety Lorazepam (Ativan) 2 mg IV X1 PRN PRN Reason: Seizure Lorazepam (Ativan) 1 mg PO Q4H [facility]; Taper Stop: 06/30/19 20:29 Last Admin: 06/27/19 08:40 Dose: 1 mg Documented by: Methocarbamol (Methocarbamol) 750 mg PO Q6H PRN PRN PRN Reason: Muscle Aches Nicotine (Nicoderm Cq (Pbkc)) 14 mg TRANSDERM. DAILY [facility] Last Admin: 06/27/19 08:40 Dose: 14 mg Documented by: Nutritional Formula (Lactose Free) (Ensure Enlive) 120 ml PO 4X/DAY [facility] Last Admin: 06/27/19 08:45 Dose: Not Given Documented by: Ondansetron HCl (Zofran Odt) 4 mg PO Q6H PRN PRN PRN Reason: NAUSEA Pantoprazole Sodium (Protonix) 40 mg PO DAILY [facility] Last Admin: 06/27/19 08:40 Dose: 40 mg Documented by: Senna (Senokot) 1 tablet PO QHS PRN PRN PRN Reason: Constipation Sertraline HCl (Zoloft) 50 mg PO QHS [facility] Last Admin: 06/26/19 21:38 Dose: 50 mg Documented by: Sodium Chloride () 10 - 40 ml IV UD PRN PRN Reason: SALINE FLUSH Last Admin: 06/26/19 20:13 Dose: 10 ml Documented by: Trazodone HCl (Desyrel) 50 mg PO QHS [facility] Last Admin: 06/26/19 21:36 Dose: Not Given Documented by: STROKE Vital Signs/Narrative: Vital Signs Pulse Ox 06/27/19 07:22 95 Medical Necessity - Tobacco Use Smoking Status: Current every day smoker Tobacco Use: Cigarettes Assessment/Plan All Active Problems Benzodiazepine withdrawal (Acute) Patient is a 63-year-old lady with history of chronic Xanax use admitted with acute benzo withdrawal 1. Acute benzo withdrawal -Patient admitted to regular nursing floor for symptomatic management in addition to initiation of lorazepam taper with plans for patient's primary care Dr. Strickland to continue to taper as outpatient?06/27/2019 ?06/27/2019: Patient still remains significantly symptomatic with significant anxiety. 2. Hypothyroidism ~patient is on levothyroxine home dose continued 3. GERD ?On PPI did continue 4. Depression with anxiety - on Zoloft did continue 6. Tobacco dependence -counseled on cessation, offered nicotine patch for tobacco cravings . DVT prophylaxis ?Low risk did encourage early ambulation Code Visit Inpatient E&M: 63949 Subs Hosp L2
[2019-06-27 16:30] VITALS: BP 123/74; PULSE 72; RESP 16; TEMP 37; O2SAT 96
--- NOTE | 2019-06-27 17:22 | NURSING ---
reviewed and agree with documentation by DEAN Rajput
[2019-06-27] MEDS: Sertraline 50 MG Tablet PO (20:49)
[2019-06-27] MEDS: Mag Hydrox/Al Hydrox/Simeth 30 ML UDC PO (21:08)
[2019-06-27] MEDS: 0.9% Saline Lock 10 ML Syringe IV (21:08)
[2019-06-27 22:30] VITALS: BP 132/73; PULSE 68; RESP 16; TEMP 36.9; O2SAT 96
[2019-06-28] MEDS: LORazepam 1 MG Tablet 0.5 MG PO ×4 (02:45→20:15)
[2019-06-28 02:59] VITALS: BP 120/69; PULSE 68; RESP 16; TEMP 36.8; O2SAT 96
[2019-06-28] MEDS: Levothyroxine 88 MCG Tablet 44 MCG PO (06:34)
--- NOTE | 2019-06-28 07:42 | PCM.PN.HOSP ---
Patient Problems: Active and Suspected Problems Benzodiazepine withdrawal (Acute) Reason for Visit: Acute benzo withdrawal Subjective: Patient seen still complaining of feeling anxious. Also tearful during the discussion. Did explain to patient the long-term plan. Which is tapering off Ativan as outpatient. Plan is for patient to be discharged on 06/29/2019 and to follow-up with Dr. Strickland same day for for initiation of tapering of his Ativan Objective: GENERAL: Patient is tearful HEENT: Atraumatic; EYES; Anicteric, Normal Conjunctiva NECK; supple, normal thyroid, RESPIRATORY: Diminished to auscultation CARDIOVASCULAR: Regular S1 S2, GI: soft, normoactive bowel sounds, : No Renal angle tenderness; EXTREMITIES: No edema, no clubbing, MUSCULOSKELETAL: no muscle waisting NEURO: Awake; no lateralizing signs. SKIN: No Rash PSYCH; tearful Vitals/I&O's: Vital Signs Temp Pulse Resp BP Pulse Ox 98.3 F 68 16 120/69 96 06/28/19 02:59 06/28/19 02:59 06/28/19 02:59 06/28/19 02:59 06/28/19 02:59 Oxygen Delivery Method Room Air Weight: 48.7 kg Body Mass Index (BMI) 21.7 Intake and Output for Last 24 Hours 06/26/19 06/27/19 06/28/19 23:59 23:59 23:59 Intake Total 3150 / 3150 850 / 2250 1500 / 1500 Balance 3150 / 3150 850 / 2250 1500 / 1500 Current Medications Acetaminophen (Tylenol) 650 mg PO Q6H PRN PRN PRN Reason: Pain Score 1-10/Temp > 100.7 F Al Hydroxide/Mg Hydroxide (Mylanta Ii) 30 ml PO Q6H PRN PRN PRN Reason: dyspesia Last Admin: 06/27/19 21:08 Dose: 30 ml Documented by: Albuterol Sulfate (Ventolin Aerosols) 2.5 mg INHALATION Q2H PRN PRN PRN Reason: Shortness of Breath/Wheezing Bisacodyl (Dulcolax) 10 mg RECTAL DAILY PRN PRN PRN Reason: Constipation Dicyclomine HCl (Bentyl) 20 mg PO Q6H PRN PRN PRN Reason: abdominal discomfort Gabapentin (Neurontin) 300 mg PO TIDCM [facility] Last Admin: 06/27/19 16:30 Dose: 300 mg Documented by: Glucagon () 1 mg IM .X1 PRN PRN Reason: Hypoglycemia Dextrose (Dextrose 10%-Water) 250 mls @ 999 mls/hr IV .Q16M PRN; Protocol PRN Reason: HYPOGLYCEMIA Ibuprofen (Motrin) 600 mg PO Q8H PRN PRN PRN Reason: Pain Score 1-5/10 Levothyroxine Sodium (Synthroid) 88 mcg PO MoTuWeThFrSa@0600 [facility] Last Admin: 06/27/19 04:38 Dose: 88 mcg Documented by: Levothyroxine Sodium (Synthroid) 44 mcg PO Gregorio@0600 [facility] Last Admin: 06/28/19 06:34 Dose: 44 mcg Documented by: Loperamide HCl (Imodium) 2 - 4 mg PO UD PRN PRN Reason: LOOSE STOOLS Lorazepam (Ativan) 1 mg IV Q4H PRN PRN PRN Reason: Severe Anxiety Lorazepam (Ativan) 2 mg IV X1 PRN PRN Reason: Seizure Lorazepam (Ativan) 1 mg PO Q6H [facility]; Taper Stop: 06/30/19 20:29 Last Admin: 06/28/19 02:45 Dose: 1 mg Documented by: Methocarbamol (Methocarbamol) 750 mg PO Q6H PRN PRN PRN Reason: Muscle Aches Nicotine (Nicoderm Cq (Pbkc)) 14 mg TRANSDERM. DAILY [facility] Last Admin: 06/27/19 08:40 Dose: 14 mg Documented by: Nutritional Formula (Lactose Free) (Ensure Enlive) 120 ml PO 4X/DAY [facility] Last Admin: 06/27/19 20:51 Dose: Not Given Documented by: Ondansetron HCl (Zofran Odt) 4 mg PO Q6H PRN PRN PRN Reason: NAUSEA Pantoprazole Sodium (Protonix) 40 mg PO DAILY [facility] Last Admin: 06/27/19 08:40 Dose: 40 mg Documented by: Senna (Senokot) 1 tablet PO QHS PRN PRN PRN Reason: Constipation Sertraline HCl (Zoloft) 50 mg PO QHS [facility] Last Admin: 06/27/19 20:49 Dose: 50 mg Documented by: Sodium Chloride () 10 - 40 ml IV UD PRN PRN Reason: SALINE FLUSH Last Admin: 06/27/19 21:08 Dose: 10 ml Documented by: Trazodone HCl (Desyrel) 50 mg PO QHS [facility] Last Admin: 06/27/19 20:49 Dose: Not Given Documented by: Medical Necessity - Tobacco Use Smoking Status: Current every day smoker Tobacco Use: Cigarettes Assessment/Plan All Active Problems Benzodiazepine withdrawal (Acute) Patient is a 63-year-old lady with history of chronic Xanax use admitted with acute benzo withdrawal 1. Acute benzo withdrawal -Patient admitted to regular nursing floor for symptomatic management in addition to initiation of lorazepam taper with plans for patient's primary care Dr. Strickland to continue to taper as outpatient?06/27/2019 ?06/27/2019: Patient still remains significantly symptomatic with significant anxiety. Did explain to patient the long-term plan. Which is tapering off Ativan as outpatient. Plan is for patient to be discharged on 06/29/2019 and to follow-up with Dr. Strickland same day for for initiation of tapering of his Ativan. Nursing staff informed to obtain an appointment for patient on 07/17/2019 2. Hypothyroidism ~patient is on levothyroxine home dose continued 3. GERD ?On PPI did continue 4. Depression with anxiety - on Zoloft did continue 6. Tobacco dependence -counseled on cessation, offered nicotine patch for tobacco cravings 7. DVT prophylaxis ?Low risk did encourage early ambulation Code Visit Inpatient E&M: 11750 Subs Hosp L2
[2019-06-28 08:32] VITALS: BP 132/79; PULSE 64; RESP 16; TEMP 37.3; O2SAT 97
[2019-06-28] MEDS: Gabapentin 300 MG Capsule PO ×3 (08:40→16:58)
[2019-06-28] MEDS: Pantoprazole Sodium 40 MG Tablet PO (08:41)
[2019-06-28 10:35] VITALS: PULSE 64
[2019-06-28 12:42] VITALS: BP 123/70; PULSE 65; RESP 14; TEMP 37.1; O2SAT 95
[2019-06-28] MEDS: Mag Hydrox/Al Hydrox/Simeth 30 ML UDC PO (13:15)
[2019-06-28 16:51] VITALS: BP 132/75; PULSE 62; RESP 16; TEMP 36.7; O2SAT 95
[2019-06-28] MEDS: Sertraline 50 MG Tablet PO (20:17)
[2019-06-28 22:00] VITALS: BP 120/69; PULSE 65; RESP 16; TEMP 36.8; O2SAT 97
[2019-06-29 02:00] VITALS: BP 130/85; PULSE 60; RESP 18; TEMP 36.7; O2SAT 96
[2019-06-29] MEDS: LORazepam 1 MG Tablet 0.5 MG PO ×3 (02:15→14:46)
[2019-06-29] MEDS: Levothyroxine 88 MCG Tablet PO (06:47)
[2019-06-29 07:54] VITALS: BP 129/80; PULSE 60; RESP 16; TEMP 37.2; O2SAT 95
[2019-06-29] MEDS: Gabapentin 300 MG Capsule PO ×3 (07:57→16:58)
[2019-06-29] MEDS: Pantoprazole Sodium 40 MG Tablet PO (07:57)
--- NOTE | 2019-06-29 10:42 | DCINST_ITS ---
- Discharge Diagnoses Current Active Problems: Current Active and Chronic Problems Benzodiazepine withdrawal (Acute) Anxiety and depression (Chronic) Tobacco use (Chronic) History of Adan thyroiditis (Chronic) Hypothyroidism (Chronic) GERD (gastroesophageal reflux disease) (Chronic) You will use the following diet at home:: No restrictions Your food should be the consistency of: Regular Allergies/Adverse Reactions: Allergies buspirone [From BuSpar] Adverse Reaction (Verified 06/25/19 16:03) Other NIGHTMARES, DIARRHEA, VOMITING hydroxyzine [From Vistaril] Adverse Reaction (Verified 06/25/19 16:03) Vomiting sertraline [From Zoloft] Adverse Reaction (Verified 06/25/19 16:04) Other tramadol [From Ultram] Adverse Reaction (Verified 06/25/19 16:03) Other trazodone Adverse Reaction (Verified 06/25/19 20:03) Vomiting zolpidem [From Ambien] Adverse Reaction (Verified 06/25/19 16:03) Other Medications to take at Discharge Levothyroxine [Synthroid] 44 mcg PO PRINGLE 05/24/17 Pantoprazole Sodium 40 mg PO DAILY 12/02/18 Levothyroxine [Synthroid] 88 mcg PO [id number] 03/24/19 Sertraline HCl 50 mg PO QHS 06/25/19 Alprazolam [Xanax] 1 mg PO TID #0 06/29/19 Lorazepam [Ativan] 0.5 mg PO Q6H tablet 06/29/19 Primary Care Physician: Aj Strickland DO [Primary Care Provider] - Test Results: Test results from this visit will be discussed in further detail at your follow- up appointment, if applicable. Please Follow Up With: Tiff Strickland NP-C When: this week. Please Follow Up With: [facility] When: 1-2 weeks Proposed Discharge Date: 06/29/19
--- NOTE | 2019-06-29 10:44 | PCM.DC.SUM ---
Discharge Date and Diagnosis - Problem List Patient Problems: Active and Suspected Problems Benzodiazepine withdrawal (Acute) Date of Admission: 06/25/19 Date of Discharge: 06/29/19 - Primary Discharge Diagnosis Active and Suspected Problems Benzodiazepine withdrawal (Acute) - Secondary Discharge Diagnosis Chronic Problems Anxiety and depression (Chronic) Tobacco use (Chronic) History of Adan thyroiditis (Chronic) Hypothyroidism (Chronic) GERD (gastroesophageal reflux disease) (Chronic) Hospital Course and Treatment Operations: None Procedures: None Summary of Care Provided: The patient is a 63 year old F presents at the discretion of her PCP for treatment of benzodiazepine use. Patient was started on lorazepam as patient was taking Xanax. Patient received 98 1 mg tablets of Xanax on 11 June. Patient states that some pets diet as well as some family members the patient states that she has been taking more than what she has been allotted. Saw her primary care doctor who referred her over here to seek treatment for benzodiazepine. Patient was put on a tapering dose of lorazepam. Patient is stable and has no acute symptoms of a benzodiazepine withdrawal. Discussed with patient at length that she has been using the benzodiazepines inappropriately and or not a good long-term solution for anxiety. Strongly rec encouraged her to continue with the taper of the benzodiazepines but also to seek counseling which patient states that she is going to be doing. I told the patient that its for the taper that she could either use the Xanax or the lorazepam that she has been receiving here but will need to be tapered over. Weeks. Patient states that she feels much better with the lorazepam. I discussed with the patient's primary care provider, Tiff Strickland, and spoke with her directly. And patient was under the assumption that she will immediately following with Marco A. Patient endorses that she does have a few of her Xanax left and patient continue with that until she gets put on a lorazepam taper. [] Patient Problems: Active and Suspected Problems Benzodiazepine withdrawal (Acute) - Physical Exam Vitals/I&O's: Vital Signs Temp Pulse Resp BP Pulse Ox 37.2 C 60 16 129/80 H 95 06/29/19 07:54 06/29/19 07:54 06/29/19 07:54 06/29/19 07:54 06/29/19 07:54 Oxygen Delivery Method Room Air Weight: 48.7 kg Body Mass Index (BMI) 21.7 Intake and Output for Last 24 Hours 06/27/19 06/28/19 06/29/19 23:59 23:59 23:59 Intake Total 850 / 2250 1500 / 1500 Balance 850 / 2250 1500 / 1500 General: Alert, No apparent distress HEENT: Atraumatic, Normocephalic Psych/Mental Status: Appropriate, Anxious Current Medications Acetaminophen (Tylenol) 650 mg PO Q6H PRN PRN PRN Reason: Pain Score 1-10/Temp > 100.7 F Al Hydroxide/Mg Hydroxide (Mylanta Ii) 30 ml PO Q6H PRN PRN PRN Reason: dyspesia Last Admin: 06/28/19 13:15 Dose: 30 ml Documented by: Albuterol Sulfate (Ventolin Aerosols) 2.5 mg INHALATION Q2H PRN PRN PRN Reason: Shortness of Breath/Wheezing Bisacodyl (Dulcolax) 10 mg RECTAL DAILY PRN PRN PRN Reason: Constipation Dicyclomine HCl (Bentyl) 20 mg PO Q6H PRN PRN PRN Reason: abdominal discomfort Gabapentin (Neurontin) 300 mg PO TIDCM [facility] Last Admin: 06/29/19 07:57 Dose: 300 mg Documented by: Glucagon () 1 mg IM .X1 PRN PRN Reason: Hypoglycemia Dextrose (Dextrose 10%-Water) 250 mls @ 999 mls/hr IV .Q16M PRN; Protocol PRN Reason: HYPOGLYCEMIA Ibuprofen (Motrin) 600 mg PO Q8H PRN PRN PRN Reason: Pain Score 1-5/10 Levothyroxine Sodium (Synthroid) 88 mcg PO MoTuWeThFrSa@0600 [facility] Last Admin: 06/29/19 06:47 Dose: 88 mcg Documented by: Levothyroxine Sodium (Synthroid) 44 mcg PO Pringle@0600 [facility] Last Admin: 06/28/19 06:34 Dose: 44 mcg Documented by: Loperamide HCl (Imodium) 2 - 4 mg PO UD PRN PRN Reason: LOOSE STOOLS Lorazepam (Ativan) 1 mg IV Q4H PRN PRN PRN Reason: Severe Anxiety Lorazepam (Ativan) 2 mg IV X1 PRN PRN Reason: Seizure Lorazepam (Ativan) 0.5 mg PO Q6H [facility]; Taper Stop: 06/30/19 20:29 Last Admin: 06/29/19 08:38 Dose: 0.5 mg Documented by: Methocarbamol (Methocarbamol) 750 mg PO Q6H PRN PRN PRN Reason: Muscle Aches Nicotine (Nicoderm Cq (Pbkc)) 14 mg TRANSDERM. DAILY [facility] Last Admin: 06/29/19 07:57 Dose: 14 mg Documented by: Ondansetron HCl (Zofran Odt) 4 mg PO Q6H PRN PRN PRN Reason: NAUSEA Pantoprazole Sodium (Protonix) 40 mg PO DAILY [facility] Last Admin: 06/29/19 07:57 Dose: 40 mg Documented by: Senna (Senokot) 1 tablet PO QHS PRN PRN PRN Reason: Constipation Sertraline HCl (Zoloft) 50 mg PO QHS [facility] Last Admin: 06/28/19 20:17 Dose: 50 mg Documented by: Sodium Chloride () 10 - 40 ml IV UD PRN PRN Reason: SALINE FLUSH Last Admin: 06/27/19 21:08 Dose: 10 ml Documented by: Trazodone HCl (Desyrel) 50 mg PO QHS [facility] Last Admin: 06/28/19 20:18 Dose: Not Given Documented by: Discharge Diet: No Restrictions Home Medications: Medications to take at Discharge Levothyroxine [Synthroid] 44 mcg PO PRINGLE 05/24/17 Pantoprazole Sodium 40 mg PO DAILY 12/02/18 Levothyroxine [Synthroid] 88 mcg PO [id number] 03/24/19 Sertraline HCl 50 mg PO QHS 06/25/19 Alprazolam [Xanax] 1 mg PO TID #0 06/29/19 Lorazepam [Ativan] 0.5 mg PO Q6H tablet 06/29/19 Primary Care Physician: Aj Strickland DO [Primary Care Provider] - Please Follow Up With: iTff Strickland NP-C When: this week. Please Follow Up With: Counseling,Center When: 1-2 weeks Disposition: Home Minutes spent on discharge:: 32 Patient Condition:: Good Medical Necessity - Tobacco Use Smoking Status: Current every day smoker Tobacco Use: Cigarettes Meaningful Use Info Meaningful Use Diagnoses (Choose all that apply): None applicable Code Visit Inpatient E&M: 78707 Disch Hosp
--- NOTE | 2019-06-29 11:07 | CASEMGMT ---
Social Work Note SW met with pt to confirm discharge plans. SW introduced self and role at [facility]. Pt is alert and orientated x3. Pt states that she will be going to Dr. Strickland office at discharge. Pt confirms that she was provided mental health/substance abuse treatment resources and states that once she gets to Dr. Strickland's office she will talk to Dr. Strickland about recommendations for continued treatment and will make own appointment. Pt denied wanting this worker to make any appointments for counseling for her at this time. Alka Hitchcock WIRE WEAVER, ONCOLOGY COORDINATOR
--- NOTE | 2019-06-29 14:40 | NURSING ---
Discussed patient concerns at length. Patient described her interaction with Domitila Strickland NP who referred her to the hospital for Benzodiazapine withdrawal. Per patient plan was to be admitted to hospital and have a follow up appointment same day. Hospital staff attempted to make a follow up appointment today but were unable to have an appointment started for today. Appointment was established for first available appointment on 06/29 at 0740, which patient is aware of. Informed patient that her last dose of the taper is scheduled for 2030 this evening and that dose could be given at approximately 2100 which would be roughly 10 hours from the time of her follow up appointment, also detailed that patient if staying in the hospital would not receive another dose of the scheduled ativan taper as the last scheduled dose would be 2030 tonight. Patient remained anxious despite the encouragement and explanation. Discussed patient concerns with Dr Byrd as well as Dr Joshua (see physician notification for details). Contacted office of Domitila Strickland NP and Dr Bowling where the patient's follow up appointment is scheduled for tomorrow. Reviewed scenario and patient concern. Leticia at the provider's office stated that Dr Byrd had called in a little earlier and a prescription had been sent to [facility] in [place] for Ativan. This nurse called [facility] to confirm the prescription had been received and approximation of when the prescription would be available. This information was relayed to the patient who acknowledged the information and stated that she will plan to leave the hospital after she eats dinner this evening. No further questions expressed by the patient
[2019-06-29 14:50] VITALS: BP 154/75; PULSE 77; RESP 18; TEMP 36.7; O2SAT 97
--- NOTE | 2019-06-29 16:07 | CHAPLAIN ---
Type of Pastoral Visit _x__ Initial Visit ___ Follow-up Visit ___ On-call Visit ___ General Patient Visit ___ Spiritual Assessment ___ Family Conference ___ Bereavement ___ Rapid Response ___ Code Blue ___ Other (describe below) Pastoral Care Referral From _x__ Patient ___ Family ___ Nurse ___ Physician ___ Gray Tender ___ Branch Retail Executive ___ Other (describe below) Sacrament/Intervention _x__ Active listening ___ Anointing ___ Adventist ___ Bereavement ___ Communion ___ [place] exploration ___ _x__ Life review _x__ Prayer ___ Reconciliation ___ Sacrament of Sick _x__ Supportive presence ___ Wedding _x__ Other (describe below) Pastoral Comments spouse entered room during this visit; spouse also gives overview of family issues and anxiety issues and grief issues
== END 2019-06-29 17:24 | disposition home or self-care (01) | DRG 897 ==
LOC: ED 16:54 → MS3 19:27
PROVIDERS: Admitting Provider Family Medicine; Emergency Provider Emergency Medicine; PCP Nurse Practitioner Family
DX: F13.239 Sedative, hypnotic or anxiolytic dependence with withdrawal, unspecified (principal); E89.0 Postprocedural hypothyroidism; F17.210 Nicotine dependence, cigarettes, uncomplicated; K21.9 Gastro-esophageal reflux disease without esophagitis; F41.8 Other specified anxiety disorders
CPT/HCPCS: 80048; 80307; 80320; 85025; 93005; 97802; 99251; 99285; 99406; J7120; A4216; G0463; G0480

== ENCOUNTER 2019-07-01 09:38 | Emergency (ER) | payer MEDICARE, OTHER, SELFPAY ==
[2019-07-01 09:43] VITALS: BP 146/106; PULSE 86; RESP 17; TEMP 36.6; O2SAT 97; BMI 22.2
--- NOTE | 2019-07-01 10:19 | ED.VIS.GEN ---
History of Present Illness Chief Complaint: Anxiety Informant: Patient, Significant Other Narrative: Patient states that she was just in the hospital for detox from Xanax and transition to Ativan. She was discharged on Saturday. She tells me that yesterday her nurse practitioner that has been caring for her told her to increase her Zoloft. She states that it did not do anything for her last night but made her feel worse. She tells me she has diarrhea a numbness in her arms and her chest. She felt extremely anxious. She states the Ativan is not as good as Xanax and helping her calm down. She apparently has been to several [facility] facilities and is trying to get him to [facility]. Because of last night's events have not been able to sleep with her symptoms she called her nurse practitioner this morning. When she was not in the nurse that she spoke to told her to come to the emergency department. Past Medical History - Allergies and Home Meds Allergies/Adverse Reactions: Allergies buspirone [From BuSpar] Adverse Reaction (Verified 07/01/19 09:42) Diarrhea NIGHTMARES, DIARRHEA, VOMITING hydroxyzine [From Vistaril] Adverse Reaction (Verified 07/01/19 09:42) Vomiting tramadol [From Ultram] Adverse Reaction (Verified 07/01/19 09:42) Diarrhea trazodone Adverse Reaction (Verified 07/01/19 09:42) Vomiting zolpidem [From Ambien] Adverse Reaction (Verified 07/01/19 09:42) Upset Stomach Primary Care Physician: Tiff Strickland NP-C [Primary Care Provider] - As soon as possible [facility] [STAFF PHYSICIAN] - As soon as possible Surgical History: - - Thyroid resection, hysterectomy. Smoking Status: Light Smoker (<10/day) - Family History Maternal Family History: Reports: - - Patient notes a maternal family history of brain cancer. Paternal Family History: Reports: - - Patient notes paternal family history of cancer but unclear type. Review of Systems General: Denies: Chills, Fever, Sweats Eyes: Denies: Visual changes - bilaterally, Diplopia ENT: Denies: Rhinorrhea, Sore throat Cardiovascular: Denies: Chest pain, Palpitations Respiratory: Denies: Dyspnea, Cough, Dyspnea on exertion Gastrointestinal: Denies: Abdominal pain, Nausea, Vomiting, Diarrhea, Melena, Hematochezia Genitourinary: Denies: Dysuria, Hematuria, Frequency Musculoskeletal: Denies: Back pain, Extremity Pain Skin: Denies: Rash, Wounds Neurological: Denies: Headache, Weakness, Numbness Psych: Reports: Anxiety. Denies: Suicidal thoughts, Suicidal ideations Physical Exam Vital Signs/Narrative: Vital Signs Temp Pulse Resp BP Pulse Ox 07/01/19 09:43 97.8 F 86 17 146/106 H 97 Inital Vital Signs reviewed: Yes General: Well nourished, Well developed, No Acute Distress Head: Normocephalic, Atraumatic Eyes: Perrl, EOMI ENT: Moist mucous membranes, No rhinorrhea Neck: Supple, Nontender Cardiovascular: Regular rate, Regular rhythm, No murmurs Respiratory: No distress, CTA bilaterally, Chest nontender Abdomen: Soft, Nontender, Nondistended, Normal bowel sounds Back: Nontender, Normal Inspection Extremities: Nontender, No edema Skin: Normal color, No rash Neurological: Alert, Oriented x3, Cranial nerves II-XII grossly intact, Normal Strength, Normal Sensation Psychological: Normal Mood, - - anxious Diagnostic/Tx/Re-eval - Medical Decision Making I spoke with the patient's nurse practitioner directly. I also had social work visit with the patient. We offered the IOP program which I think would be of great benefit for her but she declines and would like to try [facility]. As discussed with her and her nurse practitioner I would not be writing Xanax. ED Disposition - Plan for ED Patient: Disposition: Home or Assisted Living Diagnosis: Anxiety disorder Instructions: Anxiety Reaction Referrals: Tiff Strickland NP-C [Primary Care Provider] - As soon as possible [facility] [STAFF PHYSICIAN] - As soon as possible
--- NOTE | 2019-07-01 11:00 | CM.ED ---
Social Work Consult: Mental Health Informant: Dr. Bonilla Chief Complaint: Patient stating to be feeling overwhelmed and anxious since getting off of Xanax. Patient primary care physician recommended for patient to stop taking Xanax and patient went through detox program at [facility] and discharged to home on 06/29/2019 with plan to follow up with primary care physician. Marital/Social Status: Marries to Pranav Oliva Living Situation: Lives with spouse Stressors/Triggers: we have a lot going on per patient spouse. Patient is familiar to this psych social worker and identified last week that a current stressor is that two of patient cats had to be put down. Mental Health Treatment/History: Reporting anxiety and depression and to manage anxiety with Xanax in the past. Patient stating the new meds don't work as well. Patient with history of counseling services but no active counseling. Patient primary care physician is recommending for patient to follow up with [facility] for further treatment and support for both substance use and mental health. Risk to Self/Others: Patient denies any suicidal thoughts/plans or history of. Mental Status Exam: A&Ox3 General Appearance/Behavior: Clean, patient hair and make-up have been done. Anxious, tearful. Assessment: Met with patient in room. Introduced self as well as psych social worker role. Patient agreeable to meeting with this psych social worker and remembers meeting with this psych social worker in the past. Patient stating to not be sure what to do. Patient stating I am tired of feeling sick. Patient believes that patient should be admitted back to the hospital for further detox as I just don't feel well. Patient requesting for Xanax. Patient educated on how patient taking Xanax against primary care physician recommendation could hurt patient in the long run. Patient voicing understanding, but still unsure about this plan. Collaborating with Dr. Bonilla, patient does not meet criteria for acute hospital stay and has already gone through the detox program. Dr. Bonilla stating to have spoken with patient N.P. and the N.P. is not recommendation for patient to receive any Xanax. Dr. Macedo supporting the N.P.'s decision and patient was updated on this. Met with patient further in room with spouse. Plan is for patient to go to [facility] for walk-in appointment. This psych social worker also providing patient with crisis hotline number, list of local counseling agencies and information on [facility]. Patient agreeable with plan. PLAN: Discharge to home and follow up with care with [facility]. Elis PIERCE, RUBEN
[2019-07-01 11:43] VITALS: BP 112/77; PULSE 62; RESP 17; O2SAT 98
== END 2019-07-01 11:45 | disposition home or self-care (01) ==
PROVIDERS: Emergency Provider Emergency Medicine; PCP Nurse Practitioner Family
DX: F41.9 Anxiety disorder, unspecified (principal); R19.7 Diarrhea, unspecified; F17.200 Nicotine dependence, unspecified, uncomplicated; Z88.5 Allergy status to narcotic agent; Z88.8 Allergy status to other drugs, medicaments and biological substances; Z90.710 Acquired absence of both cervix and uterus; R20.0 Anesthesia of skin
CPT/HCPCS: 99282

== ENCOUNTER 2019-07-15 13:53 | Emergency (ER) | payer MEDICARE, OTHER, SELFPAY ==
[2019-07-15 13:54] VITALS: BP 156/84; PULSE 77; PULSE 83; RESP 17; RESP 18; TEMP 36.7; O2SAT 96; O2SAT 97; BMI 22.1
--- NOTE | 2019-07-15 14:35 | ED.VIS.GEN ---
History of Present Illness Chief Complaint: Substance Abuse Informant: Patient, Significant Other Narrative: Patient states that she was sent to the emergency department by [facility] to be admitted for detox from Ativan. She was just admitted to the detox program for detoxification from Xanax. She states the Ativan is not helping her anxiety she is not sleeping. She is doing quite poorly. When she was last in the emergency department I talked to her about needing more of a psychiatric care but she wanted to go through [facility]. They have been lowering her doses of Ativan down. Is still unclear to me how we went from being detox from Xanax to be getting now on Ativan. Past Medical History - Allergies and Home Meds Allergies/Adverse Reactions: Allergies buspirone [From BuSpar] Adverse Reaction (Verified 07/15/19 13:53) Diarrhea NIGHTMARES, DIARRHEA, VOMITING hydroxyzine [From Vistaril] Adverse Reaction (Verified 07/15/19 13:53) Vomiting tramadol [From Ultram] Adverse Reaction (Verified 07/15/19 13:53) Diarrhea trazodone Adverse Reaction (Verified 07/15/19 13:53) Vomiting zolpidem [From Ambien] Adverse Reaction (Verified 07/15/19 13:53) Upset Stomach Primary Care Physician: Tiff Strickland NP-C [Primary Care Provider] - Surgical History: - - Thyroid resection, hysterectomy. Smoking Status: Current every day smoker - Family History Maternal Family History: Reports: - - Patient notes a maternal family history of brain cancer. Paternal Family History: Reports: - - Patient notes paternal family history of cancer but unclear type. Review of Systems General: Reports: Malaise. Denies: Chills, Fever, Sweats Eyes: Denies: Visual changes - bilaterally, Diplopia ENT: Denies: Rhinorrhea, Sore throat Cardiovascular: Denies: Chest pain, Palpitations Respiratory: Denies: Dyspnea, Cough, Dyspnea on exertion Gastrointestinal: Denies: Abdominal pain, Nausea, Vomiting, Diarrhea, Melena, Hematochezia Genitourinary: Denies: Dysuria, Hematuria, Frequency Musculoskeletal: Denies: Back pain, Extremity Pain Skin: Denies: Rash, Wounds Neurological: Denies: Headache, Weakness, Numbness Psych: Reports: Depression, Anxiety. Denies: Suicidal thoughts, Suicidal ideations Physical Exam Vital Signs/Narrative: Vital Signs Temp Pulse Resp BP Pulse Ox 07/15/19 13:54 98.1 F 77 18 156/84 H 97 Inital Vital Signs reviewed: Yes General: Well nourished, Well developed, No Acute Distress Head: Normocephalic, Atraumatic Eyes: Perrl, EOMI ENT: Moist mucous membranes, No rhinorrhea Neck: Supple, Nontender Cardiovascular: Regular rate, Regular rhythm, No murmurs Respiratory: No distress, CTA bilaterally, Chest nontender Abdomen: Soft, Nontender, Nondistended, Normal bowel sounds Back: Nontender, Normal Inspection Extremities: Nontender, No edema Skin: Normal color, No rash Neurological: Alert, Oriented x3, Cranial nerves II-XII grossly intact, Normal Strength, Normal Sensation Psychological: Normal affect, Normal Mood Diagnostic/Tx/Re-eval - Medical Decision Making My opinion is the patient should see psychiatry and have them manage her medications and benzodiazepines and other addictive medications should not be used for her at this time. I am going to have social work work with us on this case. ED Disposition - Plan for ED Patient: Referrals: Tiff Strickland NP-C [Primary Care Provider] -
--- NOTE | 2019-07-15 16:00 | CM.ED ---
Social Work Consult: Mental Health Informant: Dr. Bonilla Telephone call from prior to patient arriving informing this secondary social studies teacher that [facility] did not refer patient to [facility] ED and in fact felt that patient was trying to convince [facility] to make a referral. Chief Complaint: Patient stating to want to be admitted for detox from Ativan. Patient stating to have spoken with [facility] and that they sent me here. Marital/Social Status: Marries to Pranav Oliva Living Situation: Lives with spouse Employment/Education: Patient currently retired. Patient voicing no concerns with comprehension or understanding. Stressors/Triggers: Patient stating to be stressed about how patient is to manage anxiety without Xanax or Ativan. Mental Health Treatment/History: Reporting anxiety and depression and to manage mental health with Ativan. Patient stating a history of using Xanax to manage anxiety but was taking too many and now the doctors will not prescribe Xanax anymore. Patient stating to be working on getting set up with counseling through [facility] and was to have first appointment today but appointment was canceled due to a change in staffing. Patient is not sure when next appointment will be as patient planned to come to the ED versus schedule another counseling appointment. Patient denies any history of inpatient psychiatric placement. Substance Abuse/Use: Patient denies any history of substance abuse. This secondary social studies teacher identifying with patient that patient is stating to have a history of prescription drug abuse, Xanax. Patient agreeing that patient was taking Xanax more then I should have. 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 Patient spouse stating to have no reason to believe that patient has started to drink alcohol again. Risk to Self/Others: Patient denies any suicidal thoughts/plans or history of. Mental Status Exam: A&Ox3 General Appearance/Behavior: Clean. Anxious. Patient did leave the room to use the restroom and freshen up patient hair. Assessment: Met with patient in room. Introduced self as well as secondary social studies teacher role. Patient agreeable to meeting with this secondary social studies teacher and remembers meeting with this secondary social studies teacher in the past. Patient spouse present and remained in room during conversation as patient wanted spouse to stay. Patient updated on phone call from and trying to clarify the miss communication as patient is stating that [facility] sent patient in to the ED and [facility] is stating to have not referred patient. Patient then stating well they did not tell me to come in. Patient stating they said I could. Patient stating I didn't know what to do. Patient requesting for a prescription of Ativan due to having thrown mine away today. This secondary social studies teacher asking why patient threw Ativan away. Patient stating I thought I was going to be admitted for detox. Patient stating to be comfortable with discharge to home as Dr. Bonilla is stating that patient does not meed criteria for acute hospital stay. Patient continues to ask about Ativan prescription. This secondary social studies teacher educating patient concern of drug seeking behavior, patient stating I am not lying to you. Patient then calling patient PCP to see if patient PCP would prescribe patient Ativan, after patient already informed this secondary social studies teacher that patient PCP told patient yesterday that no more Ativan would be prescribed. This secondary social studies teacher broaching topic of [facility] for patient to assist with medication management and helping patient develop coping skills, patient is not interested in this and patient is not pink slipped at this time. This secondary social studies teacher provided patient with resources for local counseling agencies, crisis hot line, and [facility]. Plan is for patient to follow up with counseling appointment with [facility] for tomorrow. Patient agreeable to this secondary social studies teacher calling [facility] to set up appointment. Collaborating with Dr. Brown as Dr. Bonilla handed off to Dr. Brown. Dr. Brown confirming to not be willing to prescribe patient any Ativan and is agreeable to above plan. [facility]uling is now down and they are unable to set up appointment. Irene stating plan to call patient to set up appointment later when scheduling is up. Irene aware of importance of patient having follow up counseling appointment. Updated patient/patient spouse on this information. Patient thanking this secondary social studies teacher and continues to state I don't want you to think I am lying to you. Patient spouse and patient educated to return to ED if patient begins to present with withdrawal symptoms as it is unclear how much Ativan patient is taking. Patient again stating I am not abusing Ativan. Patient presenting with a pleasant affect whiling expressing mentioned comments/statements. PLAN: Discharge to home and follow up with care with [facility]. Elis PIERCE, RUBEN
--- NOTE | 2019-07-15 16:10 | ED.DEP ---
ED Disposition - Plan for ED Patient: Disposition: Home or Assisted Living Instructions: Drug Abuse, Anxiety Reaction Referrals: Tiff Strickland NP-C [Nurse Practitioner] - As Needed Additional Instructions: Aloe up with your scheduled appointment at [facility]
[2019-07-15 16:30] VITALS: PULSE 65; RESP 18; O2SAT 96
== END 2019-07-15 16:31 | disposition home or self-care (01) ==
PROVIDERS: Emergency Provider Emergency Medicine; PCP Family Medicine
DX: F19.10 Other psychoactive substance abuse, uncomplicated (principal); F41.9 Anxiety disorder, unspecified; F17.200 Nicotine dependence, unspecified, uncomplicated
CPT/HCPCS: 99282

== ENCOUNTER 2021-11-01 21:05 | Emergency (ER) | payer MEDICARE, OTHER, SELFPAY ==
[2021-11-01 21:06] VITALS: BP 131/83; PULSE 82; RESP 16; TEMP 36.4; O2SAT 97; BMI 23.3
--- NOTE | 2021-11-01 21:46 | EX.ED.VISEXT ---
HPI History of Present Illness Chief Complaint: Bite Detail of Chief Complaint: Cat bite right hand Informant: patient Onset/Context/Timing Onset: Yesterday Narrative Narrative: Patient presents secondary to cat bite to her right palm. This occurred yesterday. This is a cat that she recently rescued for short time and is currently at a cat sanctuary. It had been a person's pet prior to this. ROS ROS ED Constitutional Constitutional ED: Denies chills or fever(s) Eyes Eyes: Denies change in vision or discharge from eye(s) ENT ENT ED: Denies discharge from eye(s), rhinorrhea or sore throat Cardiovascular Cardiovascular: Denies chest pain or palpitations Respiratory/Chest Respiratory/Chest: Denies cough or dyspnea Gastrointestinal Gastrointestinal: Denies abdominal pain, diarrhea, nausea or vomiting Genitourinary Genitourinary ED: Denies difficulty urinating or dysuria Musculoskeletal Musculoskeletal: Denies back pain or extremity pain Integumentary Reports other Details: Bite wound right hand ; Denies Abrasions or rash Neurologic Neurologic: Denies headache(s), paresthesias or weakness Allergic/Immunologic Allergic/Immunologic ED: Denies lip swelling or urticaria [facility] Medical History Anxiety Thyroid activity decreased Home Medications pantoprazole 40 mg tablet,delayed release 40 mg PO DAILY gerd 12/02/18 [History Last Taken 06/25/19] levothyroxine 88 mcg tablet 88 mcg PO MOTUWETHFRSA thyroid 03/24/19 [History Last Taken 06/25/19] amoxicillin 875 mg-potassium clavulanate 125 mg tablet 1 tab PO BID #14 tabs 11/01/21 [Rx Last Taken Unknown] clonazepam 0.5 mg tablet 0.5 tab PO 4X/DAY PRN PRN Anxiety 11/01/21 [History Last Taken Unknown] Allergy/AdvReac Type Severity Reaction Status Date / Time buspirone [From BuSpar] AdvReac Diarrhea Verified 11/01/21 21:06 hydroxyzine [From Vistaril] AdvReac Vomiting Verified 11/01/21 21:06 tramadol [From Ultram] AdvReac Diarrhea Verified 11/01/21 21:06 trazodone AdvReac Vomiting Verified 11/01/21 21:06 zolpidem [From Ambien] AdvReac Upset Verified 11/01/21 21:06 Stomach Social History Smoking Status: Current every day smoker tobacco type: cigarettes EXAM Physical Exam Const Vital Signs: 11/01/21 21:06 Temperature 97.6 F L Temperature Source Temporal Pulse Rate 82 Respiratory Rate 16 Blood Pressure 131/83 H Blood Pressure Mean 99 Pulse Ox 97 Oxygen Delivery Method Room Air Positive well nourished and well developed General Appearance ED: well developed HEENT Reports normocephalic and head/scalp atraumatic Eyes PERRL and EOMs intact bilaterally Neck supple Chest Wall inspection of chest normal and palpation of chest normal Resp normal respiratory effort and clear to auscultation bilaterally Cardio regular rate and regular rhythm GI Palpation: soft Extremity Extremity Narrative: Bite wound to the hypothenar eminence on the palm of the right hand. Minimal edema and tenderness. Full range of motion of all digits without difficulty. No tenderness along the proximal tendons. Neuro oriented x3 and no sensory deficits noted Sensorium / Orientation: alert Motor Exam: strength 5/5 throughout Psych mental status grossly normal Skin no rashes or lesions noted MDM MDM MDM Narrative Medical decision making narrative: Patient was given a dose of Augmentin. Right hand x-ray obtained. Treatment and Re-Evaluation Narrative: Following x-ray right hand is soaked. Wound is cleansed and dressed with antibiotic ointment. Right hand x-ray per my interpretation reveals no radiopaque foreign body. No acute abnormality. Patient be discharged with a 7-day prescription for Augmentin. Return instructions been provided. Discharge Plan Triage Chief Complaint: Bite ED Provider: Carola Marques Dx/Rx/DC Orders Clinical Impression: Cat bite of hand Instructions: ED Cat Bite Prescriptions: New amoxicillin-pot clavulanate 875-125 mg tablet 1 tab PO BID Qty: 14 0RF No Action pantoprazole 40 MG tablet,delayed release (DR/EC) 40 mg PO DAILY levothyroxine 88 MCG tablet 88 mcg PO MOTUWETHFRSA clonazepam 0.5 mg tablet 0.5 tab PO 4X/DAY PRN PRN (Reason: Anxiety) Label Comments: take 1 tablet by mouth four times a day if needed for anxiety Primary Care Provider: Care Physician,No Primary Referrals: Eduardo Bowling MD [NON-STAFF] - Activity Restrictions/Additional Instructions: Follow-up with Dr. Bowling or primary care physician of your choice within the next week. Disposition Disposition: Home, Self Care
--- NOTE | 2021-11-01 21:54 | RAD_ITS ---
EXAM: XR RIGHT HAND COMPLETE, 3 OR MORE VIEWS CLINICAL INDICATION: wound TECHNIQUE: Frontal, lateral and oblique views of the right hand. This report was created using [employer] report generation technology. COMPARISON: None FINDINGS: BONES/JOINTS: Unremarkable with the exception of minimal degenerative changes, including minimal osteophytes at the level of the fifth DIP joint. No acute fracture. No subluxation. Normal alignment. Preservation of the joint space. No sclerotic or destructive changes observed. SOFT TISSUES: Unremarkable. No soft tissue swelling or gas. No radiopaque foreign body. RAD/Hand Min 3 Views IMPRESSION: No suspicious findings. Electronically Signed: Susanne Rice MD at 22:47 EDT ,
[2021-11-01] MEDS: Amox/Clavulanate 875 MG Tablet PO (21:56)
[2021-11-01 22:45] VITALS: PULSE 80; RESP 18; O2SAT 96
== END 2021-11-01 22:45 | disposition home or self-care (01) ==
PROVIDERS: Emergency Provider Emergency Medicine; Visit Provider Emergency Medicine
DX: S61.451A Open bite of right hand, initial encounter (principal); W55.01XA Bitten by cat, initial encounter; F17.210 Nicotine dependence, cigarettes, uncomplicated
CPT/HCPCS: 73130; 99283